=== PATIENT | male | born 1950 | race Caucasian/White ===

== ENCOUNTER 2019-08-14 12:35 | Inpatient (IN) ==
[2019-08-14] MEDS ORDERED: Albuterol 2.5 MG/3 ML NEBULIZER IH PRN (12:48)
[2019-08-14] MEDS ORDERED: CeFAZolin Syr 2,000MG/20 ML 2,000 MG/20 ML SYRINGE IVPB ONE (12:48)
[2019-08-14] MEDS ORDERED: MetroNIDAZOLE 500 MG/100 ML 500 MG/100 ML BAG IVPB ONE (12:49)
[2019-08-14] MEDS ORDERED: Ringers Solution, Lactated 1,000 ML IVC SCH (13:00)
[2019-08-14] MEDS ORDERED: Famotidine 20 MG/2 ML VIAL IVP ONE (13:04)
[2019-08-14] MEDS ORDERED: Acetaminophen IV 1,000 MG/100 ML INFUS..BTL IVPB ONE (13:05)
[2019-08-14] MEDS ORDERED: Pregabalin 75 MG CAPSULE PO ONE (13:05)
[2019-08-14] MEDS ORDERED: *HR* Promethazine 25 MG/ML VIAL IVP PRN (13:22)
[2019-08-14] MEDS ORDERED: *HR* Labetalol 20 MG/4 ML SYRINGE IVP PRN (13:22)
[2019-08-14] MEDS ORDERED: *HR* HYDROmorphone (PF) 1 MG/ML SYRINGE IVP PRN (13:22)
[2019-08-14] MEDS ORDERED: Dexmedetomidine HCl 0 MCG/0 ML MLS IVC ONE (16:28)
[2019-08-14] MEDS ORDERED: Ketamine *HR* 500 MG/10 ML MDV ONE (16:28)
[2019-08-14] MEDS ORDERED: *HR* Propofol 200 MG/20 ML VIAL IVP ONE ×2 (16:30→21:02)
[2019-08-14] MEDS ORDERED: *HR* Magnesium Sulfate 1 GM/2 ML VIAL ONE (16:35)
[2019-08-14] MEDS ORDERED: Lidocaine -MPF 2% 2 ML VIAL ONE (16:44)
[2019-08-14] MEDS ORDERED: *HR* Succinylcholine 200 MG/10 ML VIAL IVP ONE (16:44)
[2019-08-14] MEDS ORDERED: *HR* Rocuronium Bromide 50 MG/5 ML VIAL ONE ×2 (16:44→20:42)
[2019-08-14] MEDS ORDERED: *HR* Midazolam HCl 2 MG/2 ML VIAL ONE (16:56)
[2019-08-14] MEDS ORDERED: Lidocaine -MPF 4% 5 ML AMPUL ONE (17:12)
[2019-08-14] MEDS ORDERED: *HR* FentaNYL (PF) 100 MCG/2 ML VIAL ONE ×2 (17:24→18:22)
[2019-08-14] MEDS ORDERED: Dexamethasone 4 MG/ML VIAL ONE (18:06)
[2019-08-14] MEDS ORDERED: Ondansetron 4 MG/2 ML VIAL ONE (18:06)
[2019-08-14] MEDS ORDERED: *HR* HYDROMORPHONE 2 MG/ML VIAL ONE (19:02)
[2019-08-14] MEDS ORDERED: Ketorolac 30 MG/ML VIAL ONE (20:52)
[2019-08-14] MEDS ORDERED: Naloxone 0.4 MG/ML INJ IVP PRN (21:39)
[2019-08-14] MEDS: Budesonide/Formoterol 160/4.5 1 PUFF INH IH SCH (22:59)
[2019-08-15] MEDS: *HR* HYDROcodone/Acet 5/325 mg TABLET PO PRN ×2 (02:46→10:35)
[2019-08-15] MEDS: Ringers Solution, Lactated 1,000 ML IVC SCH ×3 (02:57→14:31)
[2019-08-15] MEDS: *HR* Enoxaparin 40 MG/0.4 ML SYRINGE SQ SCH (05:36)
[2019-08-15] MEDS: Budesonide/Formoterol 160/4.5 1 PUFF INH IH SCH ×2 (07:56→20:15)
[2019-08-15] MEDS: Venlafaxine XR (24 HR) 75 MG CAP.ER.24H PO SCH (10:11)
[2019-08-15] MEDS: Topiramate 100 MG TABLET PO SCH ×2 (10:11→22:18)
[2019-08-15] MEDS: Lithium Oral Soln 300 MG/5 ML (8 mEq/5mL) UDC PO SCH (10:11)
[2019-08-15] MEDS: Gabapentin 300 MG CAPSULE PO SCH ×4 (10:11→22:18)
[2019-08-15] MEDS ORDERED: Melatonin 3 MG TABLET PO SCH (21:00)
[2019-08-15] MEDS: Ondansetron 4 MG/2 ML VIAL IVP PRN (22:46)
[2019-08-16] MEDS ORDERED: *HR* Promethazine 25 MG/ML VIAL IVP PRN (03:28)
[2019-08-16] MEDS: Ringers Solution, Lactated 1,000 ML IVC SCH (03:50)
[2019-08-16] MEDS ORDERED: D5% in 0.45% NACL w KCl 20 MEQ/1,000 ML MLS IVC SCH (05:45)
[2019-08-16] MEDS: Ondansetron 4 MG/2 ML VIAL IVP PRN (06:02)
[2019-08-16 06:26] LABS: Basophils % 0.1 %; Hematocrit 38.6 % (37.5-50.1); Hemoglobin 13.1 g/dL (12.9-16.9); Immature Granulocytes % 0.3 % (0-4); Lymphocytes # 1.6 K/mcL (0.6-4.6); Lymphocytes % 9.3 %; Mean Corpuscular HGB Conc 33.9 g/dL (31.6-35.5); Mean Corpuscular Hemoglobin 31.3 pg (28.0-33.3); Mean Corpuscular Volume 92.3 fL (83.0-100.0); Mean Platelet Volume 10.5 fL (9.4-12.4); Monocytes # 1.3 K/mcL (0.0-1.3); Monocytes % 7.1 %; Neutrophils # 14.5 K/mcL (1.6-8.9); Platelet Count 238 K/mcL (140-400); Red Blood Count 4.18 M/mcL (4.19-5.50); Red Cell Distribution Width 15.6 % (11.5-14.5); Segmented Neutrophils % 83.2 %; White Blood Count 17.5 K/mcL (4.3-11.1)
[2019-08-16] MEDS: *HR* Enoxaparin 40 MG/0.4 ML SYRINGE SQ SCH (07:00)
[2019-08-16 07:03] LABS: BUN/Creatinine Ratio 22 (6-26); Blood Urea Nitrogen 16 mg/dL (8-23); Calcium 10.6 mg/dL (8.6-10.3); Carbon Dioxide 20 mEq/L (23-29); Chloride 106 mEq/L (98-107); Glucose 125 mg/dL (70-105); Osmolality,Calculated 289 (280-300); Phosphorous 2.7 mg/dL (2.7-4.5); Potassium 3.5 mEq/L (3.5-5.1); Sodium 138 mEq/L (136-145); eGFR For African Americans > 60 (> 60); eGFR For Non-African Americans > 60 (> 60)
[2019-08-16] MEDS: Budesonide/Formoterol 160/4.5 1 PUFF INH IH SCH (07:44)
[2019-08-16] MEDS ORDERED: Ondansetron 4 MG/2 ML VIAL IVP ONE (09:44)
[2019-08-16] MEDS ORDERED: Acetaminophen IV 1,000 MG/100 ML INFUS..BTL IVPB ONE (09:44)
[2019-08-16] MEDS: Topiramate 100 MG TABLET PO SCH (10:44)
[2019-08-16] MEDS: Gabapentin 300 MG CAPSULE PO SCH (10:44)
[2019-08-16] MEDS: Lithium Oral Soln 300 MG/5 ML (8 mEq/5mL) UDC PO SCH (10:44)
[2019-08-16] MEDS: Venlafaxine XR (24 HR) 75 MG CAP.ER.24H PO SCH (10:44)
[2019-08-16] MEDS ORDERED: Lidocaine Jelly 11 ml Syringe MM STA (12:03)
[2019-08-16] MEDS: Piperacillin/Tazobactam 3.375 GM in 0.9 % Sodium Chloride Mini Bag 100 ML IVPB SCH ×2 (13:55→22:10)
[2019-08-16] MEDS ORDERED: Chloraseptic Spray 177 ML BOTTLE MM PRN (14:32)
[2019-08-16] MEDS ORDERED: Promethazine 12.5 MG in 0.9 % Sodium Chloride 50 ML IVPB PRN (14:33)
[2019-08-16] MEDS: Ipratropium/Albuterol Neb 3 ML IH SCH ×4 (15:36→19:46)
[2019-08-16] MEDS ORDERED: Furosemide 40 MG/4 ML VIAL IVP SCH (16:23)
[2019-08-16] MEDS: Acetaminophen IV 1,000 MG/100 ML INFUS..BTL IVPB SCH ×2 (16:38→21:43)
[2019-08-16] MEDS: Furosemide 40 MG/4 ML VIAL IVP SCH (17:04)
[2019-08-16] MEDS ORDERED: Perflutren Lipid Microsphere 1.3 ML in 0.9 % Sodium Chloride 8.7 ML IVP ONE (19:44)
[2019-08-16] MEDS ORDERED: Perflutren Lipid Microsphere 2 ML VIAL ONE (21:18)
[2019-08-17] MEDS: Ipratropium/Albuterol Neb 3 ML IH SCH ×7 (00:13→23:26)
[2019-08-17] MEDS: Acetaminophen IV 1,000 MG/100 ML INFUS..BTL IVPB SCH ×5 (00:30→23:37)
[2019-08-17] MEDS: D5% in 0.45% NACL w KCl 20 MEQ/1,000 ML MLS IVC SCH ×3 (05:25→15:22)
[2019-08-17] MEDS: Piperacillin/Tazobactam 3.375 GM in 0.9 % Sodium Chloride Mini Bag 100 ML IVPB SCH ×3 (05:26→21:30)
[2019-08-17] MEDS: *HR* Enoxaparin 40 MG/0.4 ML SYRINGE SQ SCH (05:28)
[2019-08-17 06:43] LABS: Basophils % 0.2 %; Eosinophils % 0.1 %; Hematocrit 37.2 % (37.5-50.1); Hemoglobin 12.8 g/dL (12.9-16.9); Immature Granulocytes % 0.2 % (0-4); Lymphocytes # 1.4 K/mcL (0.6-4.6); Mean Corpuscular HGB Conc 34.4 g/dL (31.6-35.5); Mean Corpuscular Hemoglobin 31.3 pg (28.0-33.3); Mean Platelet Volume 10.7 fL (9.4-12.4); Monocytes # 0.9 K/mcL (0.0-1.3); Monocytes % 9.5 %; Neutrophils # 6.9 K/mcL (1.6-8.9); Platelet Count 201 K/mcL (140-400); Red Blood Count 4.09 M/mcL (4.19-5.50); Red Cell Distribution Width 15.3 % (11.5-14.5); White Blood Count 9.2 K/mcL (4.3-11.1)
[2019-08-17 07:07] LABS: BUN/Creatinine Ratio 23 (6-26); Blood Urea Nitrogen 18 mg/dL (8-23); Calcium 10.4 mg/dL (8.6-10.3); Carbon Dioxide 24 mEq/L (23-29); Chloride 105 mEq/L (98-107); Glucose 136 mg/dL (70-105); Magnesium 1.9 mg/dL (1.6-2.6); Osmolality,Calculated 292 (280-300); Phosphorous 2.5 mg/dL (2.7-4.5); Potassium 2.9 mEq/L (3.5-5.1); Sodium 139 mEq/L (136-145); eGFR For African Americans > 60 (> 60); eGFR For Non-African Americans > 60 (> 60)
[2019-08-17] MEDS: Furosemide 40 MG/4 ML VIAL IVP SCH (08:19)
[2019-08-17] MEDS: Venlafaxine XR (24 HR) 75 MG CAP.ER.24H PO SCH (08:20)
[2019-08-17] MEDS: Lithium Oral Soln 300 MG/5 ML (8 mEq/5mL) UDC PO SCH (08:20)
[2019-08-17] MEDS: Pantoprazole 40 MG VIAL IVP SCH (08:20)
[2019-08-17] MEDS ORDERED: Potassium Chloride 40 MEQ, Lidocaine 1% 2 ML in D5% in Water 500 ML IVPB ONE (09:21)
[2019-08-17] MEDS ORDERED: Lidocaine -MPF 1% 5 ML AMPUL INFILT ONE (09:23)
[2019-08-17] MEDS ORDERED: D10% in Water 500 ML IVC PRN (09:41)
[2019-08-17 09:46] LABS: Bilirubin,Urine Negative (Negative); Blood,Urine Negative (Negative); Clarity,Urine Clear (Clear); Color,Urine Yellow (Yellow); Glucose,Urine (UA) Normal (Normal); Ketones,Urine Negative (Negative); Leukocyte Esterase,Urine Negative (Negative); Nitrite,Urine Negative (Negative); PH,Urine 6.5 pH Units (5.0-8.0); Protein,Urine Trace mg/dL (Neg-Trace); Specific Gravity,Urine 1.025 (1.010-1.025); Urobilinogen,Urine Normal (Normal)
[2019-08-17 10:03] LABS: INR 1.4; Prothrombin Time 15.7 Seconds (9.4-12.1)
[2019-08-17] MEDS: Saliva Stimulant 100ml BOTTLE PO PRN (11:49)
[2019-08-17] MEDS ORDERED: Clinimix E 5%-15% SOLUTION 2,000 ML with MVI, adult with vitamin K 10 ML IVC SCH (17:00)
[2019-08-17 18:30] LABS: BUN/Creatinine Ratio 22 (6-26); Blood Urea Nitrogen 19 mg/dL (8-23); Calcium 10.3 mg/dL (8.6-10.3); Carbon Dioxide 27 mEq/L (23-29); Chloride 103 mEq/L (98-107); Glucose 126 mg/dL (70-105); Osmolality,Calculated 290 (280-300); Sodium 138 mEq/L (136-145); eGFR For African Americans > 60 (> 60); eGFR For Non-African Americans > 60 (> 60)
[2019-08-17] MEDS ORDERED: *HR* HYDROmorphone (PF) 1 MG/ML SYRINGE IVP ONE (21:05)
[2019-08-18] MEDS: Piperacillin/Tazobactam 3.375 GM in 0.9 % Sodium Chloride Mini Bag 100 ML IVPB SCH ×3 (04:02→21:16)
[2019-08-18 04:07] LABS: Basophils % 0.4 %; Eosinophils # 0.1 K/mcL (0.0-0.6); Eosinophils % 1.6 %; Hematocrit 38.7 % (37.5-50.1); Hemoglobin 12.9 g/dL (12.9-16.9); Immature Granulocytes % 0.3 % (0-4); Lymphocytes # 1.5 K/mcL (0.6-4.6); Lymphocytes % 19.4 %; Mean Corpuscular HGB Conc 33.3 g/dL (31.6-35.5); Mean Platelet Volume 10.4 fL (9.4-12.4); Monocytes # 0.9 K/mcL (0.0-1.3); Monocytes % 11.9 %; Neutrophils # 5.3 K/mcL (1.6-8.9); Platelet Count 215 K/mcL (140-400); Red Blood Count 4.16 M/mcL (4.19-5.50); Red Cell Distribution Width 15.3 % (11.5-14.5); Segmented Neutrophils % 66.4 %; White Blood Count 7.9 K/mcL (4.3-11.1)
[2019-08-18] MEDS: Ipratropium/Albuterol Neb 3 ML IH SCH ×5 (04:14→20:48)
[2019-08-18 04:28] LABS: BUN/Creatinine Ratio 26 (6-26); Blood Urea Nitrogen 20 mg/dL (8-23); Calcium 10.5 mg/dL (8.6-10.3); Carbon Dioxide 28 mEq/L (23-29); Chloride 103 mEq/L (98-107); Glucose 125 mg/dL (70-105); Magnesium 1.9 mg/dL (1.6-2.6); Osmolality,Calculated 292 (280-300); Phosphorous 2.6 mg/dL (2.7-4.5); Potassium 2.9 mEq/L (3.5-5.1); Sodium 139 mEq/L (136-145); eGFR For African Americans > 60 (> 60); eGFR For Non-African Americans > 60 (> 60)
[2019-08-18] MEDS: *HR* Enoxaparin 40 MG/0.4 ML SYRINGE SQ SCH (05:32)
[2019-08-18] MEDS: Acetaminophen IV 1,000 MG/100 ML INFUS..BTL IVPB SCH ×4 (05:32→23:39)
[2019-08-18] MEDS ORDERED: Potassium Phosphate 44 MEQ in 0.9 % Sodium Chloride 250 ML IVPB ONE (08:37)
[2019-08-18] MEDS ORDERED: Potassium Chloride 40 MEQ, Lidocaine 1% 2 ML in 0.9 % Sodium Chloride 500 ML IVPB ONE (09:58)
[2019-08-18] MEDS: Venlafaxine XR (24 HR) 75 MG CAP.ER.24H PO SCH (10:31)
[2019-08-18] MEDS: Lithium Oral Soln 300 MG/5 ML (8 mEq/5mL) UDC PO SCH (10:31)
[2019-08-18] MEDS: Pantoprazole 40 MG VIAL IVP SCH (10:39)
[2019-08-18] MEDS: Furosemide 20 MG/2 ML VIAL IVP SCH (14:06)
[2019-08-18] MEDS ORDERED: Clinimix E 5%-15% SOLUTION 2,000 ML with MVI, adult with vitamin K 10 ML IVC SCH (17:00)
[2019-08-18] MEDS: Metoclopramide 10 MG/2 ML VIAL IVP SCH ×2 (18:23→23:37)
[2019-08-18] MEDS: Simethicone 80 MG TAB.CHEW PO PRN (21:04)
[2019-08-19] MEDS: Ipratropium/Albuterol Neb 3 ML IH SCH ×5 (00:22→10:34)
[2019-08-19] MEDS: *HR* Enoxaparin 40 MG/0.4 ML SYRINGE SQ SCH (05:23)
[2019-08-19] MEDS: Piperacillin/Tazobactam 3.375 GM in 0.9 % Sodium Chloride Mini Bag 100 ML IVPB SCH ×3 (05:26→20:17)
[2019-08-19] MEDS: Metoclopramide 10 MG/2 ML VIAL IVP SCH ×3 (05:29→18:35)
[2019-08-19] MEDS: Acetaminophen IV 1,000 MG/100 ML INFUS..BTL IVPB SCH ×3 (05:36→18:34)
[2019-08-19 06:12] LABS: Basophils % 0.3 %; Eosinophils # 0.3 K/mcL (0.0-0.6); Eosinophils % 2.9 %; Hematocrit 39.4 % (37.5-50.1); Hemoglobin 12.5 g/dL (12.9-16.9); Immature Granulocytes % 0.3 % (0-4); Lymphocytes # 1.6 K/mcL (0.6-4.6); Mean Corpuscular HGB Conc 31.7 g/dL (31.6-35.5); Mean Corpuscular Hemoglobin 30.5 pg (28.0-33.3); Mean Corpuscular Volume 96.1 fL (83.0-100.0); Mean Platelet Volume 11.3 fL (9.4-12.4); Monocytes # 1.1 K/mcL (0.0-1.3); Monocytes % 10.9 %; Platelet Count 244 K/mcL (140-400); Red Cell Distribution Width 15.1 % (11.5-14.5); Segmented Neutrophils % 69.6 %
[2019-08-19 06:30] LABS: BUN/Creatinine Ratio 33 (6-26); Blood Urea Nitrogen 25 mg/dL (8-23); Calcium 10.6 mg/dL (8.6-10.3); Carbon Dioxide 27 mEq/L (23-29); Chloride 103 mEq/L (98-107); Glucose 134 mg/dL (70-105); Magnesium 1.9 mg/dL (1.6-2.6); Osmolality,Calculated 296 (280-300); Phosphorous 2.5 mg/dL (2.7-4.5); Potassium 2.9 mEq/L (3.5-5.1); Sodium 140 mEq/L (136-145); eGFR For African Americans > 60 (> 60); eGFR For Non-African Americans > 60 (> 60)
[2019-08-19] MEDS ORDERED: Potassium Chloride 40 MEQ, Lidocaine 1% 2 ML in 0.9 % Sodium Chloride 500 ML IVPB ONE ×2 (06:37→06:39)
[2019-08-19] MEDS: Furosemide 20 MG/2 ML VIAL IVP SCH (09:28)
[2019-08-19] MEDS: Pantoprazole 40 MG VIAL IVP SCH (09:28)
[2019-08-19] MEDS: Venlafaxine XR (24 HR) 75 MG CAP.ER.24H PO SCH (09:28)
[2019-08-19] MEDS: Lithium Oral Soln 300 MG/5 ML (8 mEq/5mL) UDC PO SCH (09:28)
[2019-08-19] MEDS ORDERED: Ipratropium/Albuterol Neb 3 ML IH PRN (11:59)
[2019-08-19] MEDS ORDERED: Clinimix E 5%-15% SOLUTION 2,000 ML with MVI, adult with vitamin K 10 ML IVC SCH (17:00)
[2019-08-19] MEDS: *HR* LORazepam 2 MG/ML VIAL IVP PRN (20:15)
[2019-08-20] MEDS: Metoclopramide 10 MG/2 ML VIAL IVP SCH ×4 (00:21→17:42)
[2019-08-20] MEDS: Acetaminophen IV 1,000 MG/100 ML INFUS..BTL IVPB SCH ×4 (00:21→17:43)
[2019-08-20] MEDS: Simethicone 80 MG TAB.CHEW PO PRN (03:54)
[2019-08-20 04:12] LABS: Basophils % 0.3 %; Eosinophils # 0.3 K/mcL (0.0-0.6); Hematocrit 39.3 % (37.5-50.1); Hemoglobin 12.9 g/dL (12.9-16.9); Immature Granulocytes % 0.4 % (0-4); Lymphocytes # 1.6 K/mcL (0.6-4.6); Lymphocytes % 15.9 %; Mean Corpuscular HGB Conc 32.8 g/dL (31.6-35.5); Mean Corpuscular Hemoglobin 30.5 pg (28.0-33.3); Mean Corpuscular Volume 92.9 fL (83.0-100.0); Monocytes # 1.2 K/mcL (0.0-1.3); Monocytes % 11.9 %; Platelet Count 240 K/mcL (140-400); Red Blood Count 4.23 M/mcL (4.19-5.50); Red Cell Distribution Width 15.1 % (11.5-14.5); Segmented Neutrophils % 68.5 %; White Blood Count 10.2 K/mcL (4.3-11.1)
[2019-08-20 04:32] LABS: BUN/Creatinine Ratio 38 (6-26); Blood Urea Nitrogen 32 mg/dL (8-23); Carbon Dioxide 27 mEq/L (23-29); Chloride 102 mEq/L (98-107); Glucose 124 mg/dL (70-105); Magnesium 1.8 mg/dL (1.6-2.6); Osmolality,Calculated 296 (280-300); Phosphorous 2.6 mg/dL (2.7-4.5); Potassium 3.1 mEq/L (3.5-5.1); Sodium 139 mEq/L (136-145); eGFR For African Americans > 60 (> 60); eGFR For Non-African Americans > 60 (> 60)
[2019-08-20] MEDS: Piperacillin/Tazobactam 3.375 GM in 0.9 % Sodium Chloride Mini Bag 100 ML IVPB SCH ×3 (05:06→20:14)
[2019-08-20] MEDS: *HR* Enoxaparin 40 MG/0.4 ML SYRINGE SQ SCH (05:07)
[2019-08-20] MEDS ORDERED: *HR* Dextrose 50 % in Water (Syg) 50 ML SYRINGE IVP PRN (08:55)
[2019-08-20] MEDS ORDERED: Dextrose Gel 15 GM/37.5 ML TUBE PO PRN ×2 (08:55)
[2019-08-20] MEDS ORDERED: D5% in Water 1,000 ML IVC PRN (08:55)
[2019-08-20] MEDS: Furosemide 20 MG/2 ML VIAL IVP SCH (08:58)
[2019-08-20] MEDS: Pantoprazole 40 MG VIAL IVP SCH (08:59)
[2019-08-20] MEDS: Venlafaxine XR (24 HR) 75 MG CAP.ER.24H PO SCH (09:14)
[2019-08-20] MEDS: Lithium Oral Soln 300 MG/5 ML (8 mEq/5mL) UDC PO SCH (09:14)
[2019-08-20] MEDS ORDERED: Potassium Phosphate 44 MEQ in 0.9 % Sodium Chloride 250 ML IVPB ONE (11:27)
[2019-08-20] MEDS: Insulin LISPRO 300 UNITS/3 ML VIAL SQ SCH ×3 (11:28→19:49)
[2019-08-20 11:39] LABS: Estimated Average Glucose 117 mg/dl
[2019-08-20] MEDS ORDERED: Insulin LISPRO 300 UNITS/3 ML VIAL SQ SCH (12:00)
[2019-08-20] MEDS ORDERED: Clinimix E 5%-15% SOLUTION 2,000 ML with MVI, adult with vitamin K 10 ML IVC SCH (17:00)
[2019-08-20] MEDS: *HR* LORazepam 2 MG/ML VIAL IVP PRN (20:14)
[2019-08-21] MEDS: Insulin LISPRO 300 UNITS/3 ML VIAL SQ SCH ×6 (00:14→19:57)
[2019-08-21] MEDS: Acetaminophen IV 1,000 MG/100 ML INFUS..BTL IVPB SCH ×4 (00:15→17:32)
[2019-08-21 04:09] LABS: BUN/Creatinine Ratio 49 (6-26); Blood Urea Nitrogen 37 mg/dL (8-23); Calcium 10.7 mg/dL (8.6-10.3); Carbon Dioxide 25 mEq/L (23-29); Chloride 103 mEq/L (98-107); Glucose 119 mg/dL (70-105); Magnesium 2.2 mg/dL (1.6-2.6); Osmolality,Calculated 298 (280-300); Phosphorous 2.8 mg/dL (2.7-4.5); Potassium 2.8 mEq/L (3.5-5.1); Sodium 139 mEq/L (136-145); eGFR For African Americans > 60 (> 60); eGFR For Non-African Americans > 60 (> 60)
[2019-08-21] MEDS: Piperacillin/Tazobactam 3.375 GM in 0.9 % Sodium Chloride Mini Bag 100 ML IVPB SCH ×3 (05:00→20:00)
[2019-08-21] MEDS: Ondansetron 4 MG/2 ML VIAL IVP PRN (06:20)
[2019-08-21] MEDS: *HR* Enoxaparin 40 MG/0.4 ML SYRINGE SQ SCH (06:21)
[2019-08-21] MEDS: Furosemide 20 MG/2 ML VIAL IVP SCH (08:55)
[2019-08-21] MEDS: Pantoprazole 40 MG VIAL IVP SCH (08:55)
[2019-08-21] MEDS: Venlafaxine XR (24 HR) 75 MG CAP.ER.24H PO SCH (09:04)
[2019-08-21] MEDS: Lithium Oral Soln 300 MG/5 ML (8 mEq/5mL) UDC PO SCH (09:05)
[2019-08-21] MEDS ORDERED: Clinimix E 5%-15% SOLUTION 2,000 ML with MVI, adult with vitamin K 10 ML IVC SCH (17:00)
[2019-08-22] MEDS: Insulin LISPRO 300 UNITS/3 ML VIAL SQ SCH ×7 (00:09→23:47)
[2019-08-22] MEDS: Acetaminophen IV 1,000 MG/100 ML INFUS..BTL IVPB SCH ×5 (00:21→23:07)
[2019-08-22] MEDS: Piperacillin/Tazobactam 3.375 GM in 0.9 % Sodium Chloride Mini Bag 100 ML IVPB SCH (05:16)
[2019-08-22] MEDS: *HR* Enoxaparin 40 MG/0.4 ML SYRINGE SQ SCH (05:17)
[2019-08-22 05:23] LABS: BUN/Creatinine Ratio 56 (6-26); Blood Urea Nitrogen 40 mg/dL (8-23); Carbon Dioxide 30 mEq/L (23-29); Chloride 100 mEq/L (98-107); Glucose 117 mg/dL (70-105); Magnesium 2.2 mg/dL (1.6-2.6); Osmolality,Calculated 301 (280-300); Phosphorous 2.9 mg/dL (2.7-4.5); Potassium 2.9 mEq/L (3.5-5.1); Sodium 140 mEq/L (136-145); eGFR For African Americans > 60 (> 60); eGFR For Non-African Americans > 60 (> 60)
[2019-08-22] MEDS: Lithium Oral Soln 300 MG/5 ML (8 mEq/5mL) UDC PO SCH (09:48)
[2019-08-22] MEDS: Furosemide 20 MG/2 ML VIAL IVP SCH (09:48)
[2019-08-22] MEDS: Pantoprazole 40 MG VIAL IVP SCH (09:48)
[2019-08-22] MEDS: Venlafaxine XR (24 HR) 75 MG CAP.ER.24H PO SCH (09:49)
[2019-08-22] MEDS ORDERED: D10% in Water 500 ML IVC PRN (10:49)
[2019-08-22] MEDS ORDERED: Clinimix E 5%-15% SOLUTION 2,000 ML, Parenteral Amino Acid 10% 150 ML with MVI, adult ... IVC SCH ×2 (17:00)
[2019-08-22] MEDS: *HR* LORazepam 2 MG/ML VIAL IVP PRN (23:08)
[2019-08-23] MEDS: Insulin LISPRO 300 UNITS/3 ML VIAL SQ SCH ×5 (04:54→20:45)
[2019-08-23] MEDS: Acetaminophen IV 1,000 MG/100 ML INFUS..BTL IVPB SCH ×3 (05:11→18:24)
[2019-08-23] MEDS: *HR* Enoxaparin 40 MG/0.4 ML SYRINGE SQ SCH (05:11)
[2019-08-23 05:36] LABS: BUN/Creatinine Ratio 66 (6-26); Blood Urea Nitrogen 50 mg/dL (8-23); Calcium 10.9 mg/dL (8.6-10.3); Carbon Dioxide 33 mEq/L (23-29); Chloride 98 mEq/L (98-107); Glucose 126 mg/dL (70-105); Magnesium 2.1 mg/dL (1.6-2.6); Osmolality,Calculated 301 (280-300); Phosphorous 3.2 mg/dL (2.7-4.5); Potassium 2.8 mEq/L (3.5-5.1); Sodium 138 mEq/L (136-145); eGFR For African Americans > 60 (> 60); eGFR For Non-African Americans > 60 (> 60)
[2019-08-23] MEDS: Venlafaxine XR (24 HR) 75 MG CAP.ER.24H PO SCH (08:54)
[2019-08-23] MEDS: Pantoprazole 40 MG VIAL IVP SCH (08:54)
[2019-08-23] MEDS: Furosemide 20 MG/2 ML VIAL IVP SCH (08:54)
[2019-08-23] MEDS: Lithium Oral Soln 300 MG/5 ML (8 mEq/5mL) UDC PO SCH (08:55)
[2019-08-23] MEDS ORDERED: Clinimix E 5%-15% SOLUTION 2,000 ML, Parenteral Amino Acid 10% 150 ML with MVI, adult ... IVC SCH ×2 (17:00)
[2019-08-23] MEDS: Ondansetron 4 MG/2 ML VIAL IVP PRN (19:01)
[2019-08-23] MEDS ORDERED: Isovue-370 500 ML BOTTLE IVP ONE (19:41)
[2019-08-23] MEDS ORDERED: *HR* Promethazine 25 MG/ML VIAL IVP ONE (21:00)
[2019-08-24] MEDS: Acetaminophen IV 1,000 MG/100 ML INFUS..BTL IVPB SCH ×4 (00:42→17:45)
[2019-08-24] MEDS: Insulin LISPRO 300 UNITS/3 ML VIAL SQ SCH ×6 (00:48→20:57)
[2019-08-24 04:59] LABS: BUN/Creatinine Ratio 61 (6-26); Blood Urea Nitrogen 59 mg/dL (8-23); Calcium 11.3 mg/dL (8.6-10.3); Carbon Dioxide 31 mEq/L (23-29); Chloride 91 mEq/L (98-107); Glucose 113 mg/dL (70-105); Osmolality,Calculated 293 (280-300); Phosphorous 4.1 mg/dL (2.7-4.5); Potassium 3.3 mEq/L (3.5-5.1); Sodium 133 mEq/L (136-145); eGFR For African Americans > 60 (> 60); eGFR For Non-African Americans > 60 (> 60)
[2019-08-24 07:43] LABS: Hematocrit 42.5 % (37.5-50.1); Hemoglobin 14.7 g/dL (12.9-16.9); Mean Corpuscular HGB Conc 34.6 g/dL (31.6-35.5); Mean Corpuscular Hemoglobin 30.8 pg (28.0-33.3); Mean Corpuscular Volume 89.1 fL (83.0-100.0); Mean Platelet Volume 12.3 fL (9.4-12.4); Platelet Count 308 K/mcL (140-400); Red Blood Count 4.77 M/mcL (4.19-5.50); Red Cell Distribution Width 14.6 % (11.5-14.5); White Blood Count 17.9 K/mcL (4.3-11.1)
[2019-08-24] MEDS: Venlafaxine XR (24 HR) 75 MG CAP.ER.24H PO SCH (07:58)
[2019-08-24] MEDS: Lithium Oral Soln 300 MG/5 ML (8 mEq/5mL) UDC PO SCH (07:58)
[2019-08-24] MEDS: *HR* Enoxaparin 40 MG/0.4 ML SYRINGE SQ SCH (08:10)
[2019-08-24] MEDS: Pantoprazole 40 MG VIAL IVP SCH (08:10)
[2019-08-24] MEDS: Furosemide 20 MG/2 ML VIAL IVP SCH (08:10)
[2019-08-24] MEDS: Ondansetron 4 MG/2 ML VIAL IVP PRN (15:04)
[2019-08-24] MEDS ORDERED: Clinimix E 5%-15% SOLUTION 2,000 ML, Parenteral Amino Acid 10% 150 ML with MVI, adult ... IVC SCH (17:00)
[2019-08-25] MEDS: Insulin LISPRO 300 UNITS/3 ML VIAL SQ SCH ×5 (00:36→16:43)
[2019-08-25] MEDS: Acetaminophen IV 1,000 MG/100 ML INFUS..BTL IVPB SCH ×4 (01:15→17:28)
[2019-08-25 04:15] LABS: BUN/Creatinine Ratio 64 (6-26); Blood Urea Nitrogen 70 mg/dL (8-23); Calcium 11.5 mg/dL (8.6-10.3); Carbon Dioxide 36 mEq/L (23-29); Chloride 88 mEq/L (98-107); Glucose 143 mg/dL (70-105); Magnesium 2.3 mg/dL (1.6-2.6); Osmolality,Calculated 305 (280-300); Phosphorous 4.1 mg/dL (2.7-4.5); Potassium 3.3 mEq/L (3.5-5.1); Sodium 136 mEq/L (136-145); eGFR For African Americans > 60 (> 60); eGFR For Non-African Americans > 60 (> 60)
[2019-08-25 04:18] LABS: Hematocrit 41.2 % (37.5-50.1); Hemoglobin 13.8 g/dL (12.9-16.9); Immature Platelets 9.2 % (1.1-6.1); Mean Corpuscular HGB Conc 33.5 g/dL (31.6-35.5); Mean Corpuscular Hemoglobin 30.9 pg (28.0-33.3); Mean Corpuscular Volume 92.2 fL (83.0-100.0); Mean Platelet Volume 11.8 fL (9.4-12.4); Red Blood Count 4.47 M/mcL (4.19-5.50); Red Cell Distribution Width 14.6 % (11.5-14.5); White Blood Count 16.3 K/mcL (4.3-11.1)
[2019-08-25] MEDS: *HR* Enoxaparin 40 MG/0.4 ML SYRINGE SQ SCH (05:25)
[2019-08-25] MEDS: Pantoprazole 40 MG VIAL IVP SCH (09:10)
[2019-08-25] MEDS: Furosemide 20 MG/2 ML VIAL IVP SCH (09:10)
[2019-08-25] MEDS: Saliva Stimulant 100ml BOTTLE PO PRN (09:11)
[2019-08-25] MEDS ORDERED: Isovue-370 500 ML BOTTLE IVP ONE (10:21)
[2019-08-25] MEDS ORDERED: Clinimix E 5%-15% SOLUTION 2,000 ML, Parenteral Amino Acid 10% 150 ML with MVI, adult ... IVC SCH ×2 (17:00→22:14)
[2019-08-25] MEDS ORDERED: Lidocaine -MPF 2% 2 ML VIAL ONE (17:06)
[2019-08-25] MEDS ORDERED: Lidocaine -MPF 4% 5 ML AMPUL ONE (17:06)
[2019-08-25] MEDS ORDERED: *HR* Succinylcholine 200 MG/10 ML VIAL IVP ONE (17:06)
[2019-08-25] MEDS ORDERED: *HR* Rocuronium Bromide 50 MG/5 ML VIAL ONE ×2 (17:06→20:29)
[2019-08-25] MEDS ORDERED: *HR* Midazolam HCl 2 MG/2 ML VIAL ONE (17:07)
[2019-08-25] MEDS ORDERED: *HR* FentaNYL (PF) 100 MCG/2 ML VIAL ONE (17:07)
[2019-08-25] MEDS ORDERED: *HR* Propofol 200 MG/20 ML VIAL IVP ONE (17:07)
[2019-08-25] MEDS ORDERED: ceFAZolin 2,000 MG in Water for inj. (sterile) 20 ML IVP ONE (17:54)
[2019-08-25] MEDS ORDERED: Acetaminophen IV 1,000 MG/100 ML INFUS..BTL ONE (18:02)
[2019-08-25] MEDS ORDERED: Famotidine 20 MG/2 ML VIAL ONE (18:02)
[2019-08-25] MEDS ORDERED: *HR* Magnesium Sulfate 1 GM/2 ML VIAL ONE (18:42)
[2019-08-25] MEDS ORDERED: *HR* HYDROMORPHONE 2 MG/ML VIAL ONE (18:54)
[2019-08-25] MEDS ORDERED: *HR* PHENYLEPHRINE 1,000 MCG/10 ML SYRINGE IVP ONE (19:01)
[2019-08-25] MEDS ORDERED: *HR* HYDROmorphone (PF) 1 MG/ML SYRINGE IVP PRN (19:10)
[2019-08-25] MEDS ORDERED: Neostigmine Methylsulfate 3 MG/3 ML SYRINGE ONE (20:48)
[2019-08-25] MEDS ORDERED: Ondansetron 4 MG/2 ML VIAL ONE (20:48)
[2019-08-25] MEDS ORDERED: Dextrose Gel 15 GM/37.5 ML TUBE PO PRN ×2 (22:14)
[2019-08-25] MEDS ORDERED: D5% in Water 1,000 ML IVC PRN (22:14)
[2019-08-25] MEDS ORDERED: D10% in Water 500 ML IVC PRN (22:14)
[2019-08-25] MEDS ORDERED: *HR* Dextrose 50 % in Water (Syg) 50 ML SYRINGE IVP PRN (22:14)
[2019-08-25] MEDS ORDERED: Simethicone 80 MG TAB.CHEW PO PRN (22:14)
[2019-08-25] MEDS ORDERED: Naloxone 0.4 MG/ML INJ IVP PRN (22:14)
[2019-08-25] MEDS ORDERED: Chloraseptic Spray 177 ML BOTTLE MM PRN (22:14)
[2019-08-25] MEDS ORDERED: Saliva Stimulant 100ml BOTTLE PO PRN (22:14)
[2019-08-25] MEDS: *HR* HYDROmorphone 20 MG/20 ML PCA IVC PRN (23:30)
[2019-08-25] MEDS ORDERED: Ringers Solution, Lactated 1,000 ML IVC SCH (23:45)
[2019-08-26] MEDS: Acetaminophen IV 1,000 MG/100 ML INFUS..BTL IVPB SCH ×4 (00:30→16:50)
[2019-08-26] MEDS: Insulin LISPRO 300 UNITS/3 ML VIAL SQ SCH ×6 (00:30→20:36)
[2019-08-26 03:39] LABS: Hematocrit 44.8 % (37.5-50.1); Hemoglobin 14.5 g/dL (12.9-16.9); Mean Corpuscular HGB Conc 32.4 g/dL (31.6-35.5); Mean Corpuscular Hemoglobin 30.6 pg (28.0-33.3); Mean Corpuscular Volume 94.5 fL (83.0-100.0); Mean Platelet Volume 11.7 fL (9.4-12.4); Platelet Count 380 K/mcL (140-400); Red Blood Count 4.74 M/mcL (4.19-5.50); Red Cell Distribution Width 14.6 % (11.5-14.5); White Blood Count 26.2 K/mcL (4.3-11.1)
[2019-08-26 03:55] LABS: Magnesium 2.7 mg/dL (1.6-2.6); Phosphorous 4.9 mg/dL (2.7-4.5); Potassium 3.9 mEq/L (3.5-5.1)
[2019-08-26] MEDS: *HR* Enoxaparin 40 MG/0.4 ML SYRINGE SQ SCH (05:15)
[2019-08-26] MEDS: Pantoprazole 40 MG VIAL IVP SCH (08:55)
[2019-08-26] MEDS: Furosemide 20 MG/2 ML VIAL IVP SCH (08:55)
[2019-08-26] MEDS ORDERED: 0.9 % Sodium Chloride w KCl 20 MEQ/1,000 ML MLS IVC SCH (10:15)
[2019-08-26] MEDS: 0.9 % Sodium Chloride 1,000 ML IVC SCH ×3 (12:25→16:42)
[2019-08-26] MEDS: 0.9 % Sodium Chloride w KCl 20 MEQ/1,000 ML MLS IVC SCH (16:44)
[2019-08-26] MEDS ORDERED: Clinimix E 5%-15% SOLUTION 2,000 ML, Parenteral Amino Acid 10% 150 ML with MVI, adult ... IVC SCH ×2 (17:00)
[2019-08-27] MEDS: Acetaminophen IV 1,000 MG/100 ML INFUS..BTL IVPB SCH ×5 (00:02→23:53)
[2019-08-27] MEDS: 0.9 % Sodium Chloride w KCl 20 MEQ/1,000 ML MLS IVC SCH ×4 (00:45→20:51)
[2019-08-27] MEDS: Insulin LISPRO 300 UNITS/3 ML VIAL SQ SCH ×7 (00:46→23:56)
[2019-08-27 05:14] LABS: BUN/Creatinine Ratio 68 (6-26); Blood Urea Nitrogen 71 mg/dL (8-23); Carbon Dioxide 32 mEq/L (23-29); Chloride 99 mEq/L (98-107); Glucose 113 mg/dL (70-105); Magnesium 2.5 mg/dL (1.6-2.6); Osmolality,Calculated 306 (280-300); Phosphorous 3.6 mg/dL (2.7-4.5); Potassium 3.6 mEq/L (3.5-5.1); Sodium 137 mEq/L (136-145); Triglycerides 119 mg/dL (< 150); eGFR For African Americans > 60 (> 60); eGFR For Non-African Americans > 60 (> 60)
[2019-08-27] MEDS: *HR* Enoxaparin 40 MG/0.4 ML SYRINGE SQ SCH (05:16)
[2019-08-27 08:08] LABS: Basophils % 0.3 %; Hematocrit 36.9 % (37.5-50.1); Lymphocytes % 4.8 %; Mean Platelet Volume 12.1 fL (9.4-12.4); Monocytes % 7.5 %
[2019-08-27 08:09] LABS: Basophils # 0.1 K/mcL (0.0-0.2); Hemoglobin 12.1 g/dL (12.9-16.9); Immature Granulocytes % 1.6 % (0-4); Lymphocytes # 1.7 K/mcL (0.6-4.6); Mean Corpuscular HGB Conc 32.8 g/dL (31.6-35.5); Mean Corpuscular Hemoglobin 31.2 pg (28.0-33.3); Mean Corpuscular Volume 95.1 fL (83.0-100.0); Monocytes # 2.6 K/mcL (0.0-1.3); Neutrophils # 29.6 K/mcL (1.6-8.9); Platelet Count 282 K/mcL (140-400); Red Blood Count 3.88 M/mcL (4.19-5.50); Red Cell Distribution Width 15.1 % (11.5-14.5); Segmented Neutrophils % 85.8 %
[2019-08-27 08:13] LABS: White Blood Count 34.5 K/mcL (4.3-11.1)
[2019-08-27] MEDS: Pantoprazole 40 MG VIAL IVP SCH (08:59)
[2019-08-27] MEDS: Furosemide 20 MG/2 ML VIAL IVP SCH (08:59)
[2019-08-27] MEDS ORDERED: Piperacillin/Tazobactam 3.375 GM in 0.9 % Sodium Chloride Mini Bag 100 ML IVPB SCH (09:14)
[2019-08-27] MEDS ORDERED: Fluconazole 400 MG/200 ML 400 MG/200 ML BAG IVPB ONE (09:26)
[2019-08-27 10:00] LABS: Bilirubin,Urine Negative (Negative); Blood,Urine Negative (Negative); Clarity,Urine Clear (Clear); Color,Urine Yellow (Yellow); Glucose,Urine (UA) Normal (Normal); Ketones,Urine Negative (Negative); Leukocyte Esterase,Urine Negative (Negative); Nitrite,Urine Negative (Negative); Protein,Urine Trace mg/dL (Neg-Trace); Specific Gravity,Urine 1.019 (1.010-1.025); Urobilinogen,Urine Normal (Normal)
[2019-08-27] MEDS ORDERED: *HR* Heparin 5,000 UNIT/ML VIAL IVP PRN (13:34)
[2019-08-27] MEDS ORDERED: *HR* Heparin 5,000 UNIT/ML VIAL IVP ONE (13:34)
[2019-08-27] MEDS: Aspirin 81 MG TAB.CHEW PO SCH (14:44)
[2019-08-27] MEDS: Heparin 25,000 UNIT/250 ML D5W 25,000 UNIT/250 ML IV.SOLN IVC SCH (14:44)
[2019-08-27 14:59] LABS: Hematocrit 34.9 % (37.5-50.1); Hemoglobin 11.1 g/dL (12.9-16.9); Mean Corpuscular HGB Conc 31.8 g/dL (31.6-35.5); Mean Corpuscular Hemoglobin 30.2 pg (28.0-33.3); Mean Corpuscular Volume 95.1 fL (83.0-100.0); Platelet Count 254 K/mcL (140-400); Red Blood Count 3.67 M/mcL (4.19-5.50)
[2019-08-27 15:03] LABS: White Blood Count 29.9 K/mcL (4.3-11.1)
[2019-08-27 15:05] LABS: Heparin anti-factor XA UFH 0.12 IU/mL (0.30-0.70)
[2019-08-27 15:06] LABS: INR 1.2; Prothrombin Time 13.3 Seconds (9.4-12.1)
[2019-08-27] MEDS ORDERED: Clinimix E 5%-15% SOLUTION 2,000 ML, Parenteral Amino Acid 10% 150 ML with MVI, adult ... IVC SCH (17:00)
[2019-08-27] MEDS ORDERED: Perflutren Lipid Microsphere 1.3 ML in 0.9 % Sodium Chloride 8.7 ML IVP ONE (20:14)
[2019-08-27] MEDS ORDERED: Perflutren Lipid Microsphere 2 ML VIAL ONE (20:16)
[2019-08-27] MEDS: Piperacillin/Tazobactam 3.375 GM in 0.9 % Sodium Chloride Mini Bag 100 ML IVPB SCH (20:49)
[2019-08-28] MEDS: Insulin LISPRO 300 UNITS/3 ML VIAL SQ SCH ×5 (03:37→20:22)
[2019-08-28] MEDS: Piperacillin/Tazobactam 3.375 GM in 0.9 % Sodium Chloride Mini Bag 100 ML IVPB SCH ×3 (03:38→20:25)
[2019-08-28 03:44] LABS: Mean Corpuscular Hemoglobin 30.5 pg (28.0-33.3); Red Cell Distribution Width 15.1 % (11.5-14.5)
[2019-08-28 03:45] LABS: Eosinophils % 0.1 %
[2019-08-28 03:46] LABS: Basophils # 0.1 K/mcL (0.0-0.2); Basophils % 0.2 %; Hematocrit 32.2 % (37.5-50.1); Hemoglobin 10.6 g/dL (12.9-16.9); Immature Granulocytes % 2.4 % (0-4); Lymphocytes # 1.6 K/mcL (0.6-4.6); Lymphocytes % 5.8 %; Mean Corpuscular HGB Conc 32.9 g/dL (31.6-35.5); Mean Corpuscular Volume 92.8 fL (83.0-100.0); Mean Platelet Volume 11.8 fL (9.4-12.4); Monocytes # 1.7 K/mcL (0.0-1.3); Monocytes % 6.1 %; Nucleated Red Blood Cells 0.1 /100 WBC (0); Platelet Count 251 K/mcL (140-400); Red Blood Count 3.47 M/mcL (4.19-5.50); Segmented Neutrophils % 85.4 %
[2019-08-28 03:59] LABS: Neutrophils # 23.9 K/mcL (1.6-8.9)
[2019-08-28 04:05] LABS: BUN/Creatinine Ratio 62 (6-26); Blood Urea Nitrogen 56 mg/dL (8-23); Calcium 10.1 mg/dL (8.6-10.3); Carbon Dioxide 32 mEq/L (23-29); Chloride 100 mEq/L (98-107); Glucose 144 mg/dL (70-105); Magnesium 2.3 mg/dL (1.6-2.6); Osmolality,Calculated 306 (280-300); Phosphorous 2.7 mg/dL (2.7-4.5); Potassium 3.4 mEq/L (3.5-5.1); Sodium 139 mEq/L (136-145); eGFR For African Americans > 60 (> 60); eGFR For Non-African Americans > 60 (> 60)
[2019-08-28 04:37] LABS: Platelet Estimate Normal (Normal)
[2019-08-28] MEDS: *HR* Heparin 5,000 UNIT/ML VIAL IVP PRN ×2 (04:41→11:03)
[2019-08-28] MEDS: Acetaminophen IV 1,000 MG/100 ML INFUS..BTL IVPB SCH ×3 (04:43→19:23)
[2019-08-28] MEDS: 0.9 % Sodium Chloride w KCl 20 MEQ/1,000 ML MLS IVC SCH ×2 (05:17→17:02)
[2019-08-28] MEDS: Fluconazole 200 MG/100 ML 200 MG/100 ML BAG IVPB SCH (07:52)
[2019-08-28] MEDS: Furosemide 20 MG/2 ML VIAL IVP SCH (07:52)
[2019-08-28] MEDS: Aspirin 81 MG TAB.CHEW PO SCH (07:52)
[2019-08-28] MEDS: Pantoprazole 40 MG VIAL IVP SCH (07:52)
[2019-08-28] MEDS: Heparin 25,000 UNIT/250 ML D5W 25,000 UNIT/250 ML IV.SOLN IVC SCH (11:32)
[2019-08-28] MEDS ORDERED: Metoclopramide 10 MG/2 ML VIAL IVP SCH (16:00)
[2019-08-28] MEDS: Metoclopramide 20 MG in 0.9 % Sodium Chloride 50 ML IVPB SCH (16:55)
[2019-08-28] MEDS ORDERED: Clinimix E 5%-15% SOLUTION 2,000 ML, Parenteral Amino Acid 10% 150 ML with MVI, adult ... IVC SCH (17:00)
[2019-08-28] MEDS: *HR* Metoprolol 5 MG/5 ML VIAL IVP SCH (17:03)
[2019-08-28] MEDS: *HR* HYDROmorphone 20 MG/20 ML PCA IVC PRN (19:19)
[2019-08-28] MEDS: Budesonide/Formoterol 160/4.5 1 PUFF INH IH SCH (21:44)
[2019-08-29] MEDS: *HR* Metoprolol 5 MG/5 ML VIAL IVP SCH ×5 (00:45→23:59)
[2019-08-29] MEDS: Insulin LISPRO 300 UNITS/3 ML VIAL SQ SCH ×6 (00:46→20:45)
[2019-08-29] MEDS: Metoclopramide 20 MG in 0.9 % Sodium Chloride 50 ML IVPB SCH ×4 (00:46→23:56)
[2019-08-29] MEDS: Acetaminophen IV 1,000 MG/100 ML INFUS..BTL IVPB SCH ×5 (00:47→23:55)
[2019-08-29] MEDS: 0.9 % Sodium Chloride w KCl 20 MEQ/1,000 ML MLS IVC SCH ×2 (01:48→05:16)
[2019-08-29] MEDS: *HR* LORazepam 2 MG/ML VIAL IVP PRN ×2 (02:43→12:33)
[2019-08-29] MEDS ORDERED: Piperacillin/Tazobactam 3.375 GM VIAL ONE (03:58)
[2019-08-29 04:12] LABS: Basophils # 0.1 K/mcL (0.0-0.2); Basophils % 0.3 %; Eosinophils # 0.1 K/mcL (0.0-0.6); Eosinophils % 0.4 %; Immature Granulocytes % 2.9 % (0-4); Lymphocytes # 1.4 K/mcL (0.6-4.6); Lymphocytes % 5.5 %; Mean Corpuscular HGB Conc 32.3 g/dL (31.6-35.5); Mean Corpuscular Hemoglobin 29.9 pg (28.0-33.3); Mean Corpuscular Volume 92.8 fL (83.0-100.0); Mean Platelet Volume 12.3 fL (9.4-12.4); Monocytes # 1.4 K/mcL (0.0-1.3); Monocytes % 5.7 %; Platelet Count 267 K/mcL (140-400); Red Blood Count 3.34 M/mcL (4.19-5.50); Segmented Neutrophils % 85.2 %; White Blood Count 24.7 K/mcL (4.3-11.1)
[2019-08-29] MEDS: Piperacillin/Tazobactam 3.375 GM in 0.9 % Sodium Chloride Mini Bag 100 ML IVPB SCH ×3 (04:13→21:12)
[2019-08-29 04:25] LABS: BUN/Creatinine Ratio 57 (6-26); Blood Urea Nitrogen 41 mg/dL (8-23); Calcium 9.9 mg/dL (8.6-10.3); Carbon Dioxide 30 mEq/L (23-29); Chloride 102 mEq/L (98-107); Glucose 123 mg/dL (70-105); Magnesium 2.1 mg/dL (1.6-2.6); Osmolality,Calculated 299 (280-300); Phosphorous 2.6 mg/dL (2.7-4.5); Potassium 3.2 mEq/L (3.5-5.1); Sodium 139 mEq/L (136-145); eGFR For African Americans > 60 (> 60); eGFR For Non-African Americans > 60 (> 60)
[2019-08-29 04:42] LABS: Platelet Estimate Normal (Normal)
[2019-08-29] MEDS: *HR* Heparin 5,000 UNIT/ML VIAL IVP PRN (05:14)
[2019-08-29] MEDS: Heparin 25,000 UNIT/250 ML D5W 25,000 UNIT/250 ML IV.SOLN IVC SCH (05:15)
[2019-08-29] MEDS: Budesonide/Formoterol 160/4.5 1 PUFF INH IH SCH ×2 (07:24→22:10)
[2019-08-29] MEDS: Fluconazole 200 MG/100 ML 200 MG/100 ML BAG IVPB SCH (09:25)
[2019-08-29] MEDS: Furosemide 20 MG/2 ML VIAL IVP SCH (09:25)
[2019-08-29] MEDS: Pantoprazole 40 MG VIAL IVP SCH (09:28)
[2019-08-29] MEDS ORDERED: Potassium Phosphate 44 MEQ in 0.9 % Sodium Chloride 250 ML IVPB ONE (11:10)
[2019-08-29] MEDS ORDERED: [UNRECOGNIZED DRUG - OTHER] IVC SCH (17:00)
[2019-08-29] MEDS ORDERED: CLINIMIX E IVC SCH (17:00)
[2019-08-29] MEDS ORDERED: PARENTERAL AMINO ACID 10% IVC SCH (17:00)
[2019-08-29] MEDS ORDERED: MVI IVC SCH (17:00)
[2019-08-30] MEDS: Insulin LISPRO 300 UNITS/3 ML VIAL SQ SCH ×6 (00:10→21:52)
[2019-08-30] MEDS: *HR* LORazepam 2 MG/ML VIAL IVP PRN ×2 (01:14→11:18)
[2019-08-30] MEDS: Piperacillin/Tazobactam 3.375 GM in 0.9 % Sodium Chloride Mini Bag 100 ML IVPB SCH ×3 (04:36→21:51)
[2019-08-30] MEDS ORDERED: Haloperidol Lactate 5 MG/ML VIAL IM ONE (04:41)
[2019-08-30] MEDS: Acetaminophen IV 1,000 MG/100 ML INFUS..BTL IVPB SCH ×3 (05:31→17:33)
[2019-08-30] MEDS: *HR* Metoprolol 5 MG/5 ML VIAL IVP SCH ×3 (05:33→17:33)
[2019-08-30 06:05] LABS: Basophils # 0.1 K/mcL (0.0-0.2); Basophils % 0.4 %; Eosinophils # 0.1 K/mcL (0.0-0.6); Eosinophils % 0.6 %; Hematocrit 29.9 % (37.5-50.1); Hemoglobin 9.8 g/dL (12.9-16.9); Immature Granulocytes % 3.8 % (0-4); Lymphocytes # 1.5 K/mcL (0.6-4.6); Lymphocytes % 7.1 %; Mean Corpuscular HGB Conc 32.8 g/dL (31.6-35.5); Mean Corpuscular Hemoglobin 30.6 pg (28.0-33.3); Mean Corpuscular Volume 93.4 fL (83.0-100.0); Mean Platelet Volume 11.9 fL (9.4-12.4); Monocytes # 1.5 K/mcL (0.0-1.3); Monocytes % 7.5 %; Neutrophils # 16.5 K/mcL (1.6-8.9); Platelet Count 287 K/mcL (140-400); Red Cell Distribution Width 15.3 % (11.5-14.5); Segmented Neutrophils % 80.6 %; White Blood Count 20.5 K/mcL (4.3-11.1)
[2019-08-30 06:21] LABS: BUN/Creatinine Ratio 57 (6-26); Blood Urea Nitrogen 38 mg/dL (8-23); Calcium 9.9 mg/dL (8.6-10.3); Carbon Dioxide 29 mEq/L (23-29); Chloride 103 mEq/L (98-107); Glucose 156 mg/dL (70-105); Magnesium 2.2 mg/dL (1.6-2.6); Osmolality,Calculated 306 (280-300); Phosphorous 3.2 mg/dL (2.7-4.5); Sodium 142 mEq/L (136-145); eGFR For African Americans > 60 (> 60); eGFR For Non-African Americans > 60 (> 60)
[2019-08-30] MEDS ORDERED: Potassium Chloride 40 MEQ, Lidocaine 1% 2 ML in D5% in Water 500 ML IVPB ONE (07:50)
[2019-08-30] MEDS: Budesonide/Formoterol 160/4.5 1 PUFF INH IH SCH (07:54)
[2019-08-30] MEDS: Pantoprazole 40 MG VIAL IVP SCH (08:06)
[2019-08-30] MEDS: Furosemide 20 MG/2 ML VIAL IVP SCH (08:06)
[2019-08-30] MEDS: Fluconazole 200 MG/100 ML 200 MG/100 ML BAG IVPB SCH (08:06)
[2019-08-30] MEDS: Haloperidol Lactate 5 MG/ML VIAL IVP PRN ×2 (08:46→12:59)
[2019-08-30] MEDS ORDERED: Isovue-370 500 ML BOTTLE IVP ONE ×2 (09:04)
[2019-08-30] MEDS ORDERED: Potassium Chloride 40 MEQ, Lidocaine 1% 2 ML in 0.9 % Sodium Chloride 500 ML IVPB ONE (09:15)
[2019-08-30] MEDS ORDERED: Isovue-370 500 ML BOTTLE PO ONE (09:51)
[2019-08-30 10:22] LABS: % Iron Saturation 8 % (20-55); Iron 12 mcg/dL (65-175); Transferrin 109 mg/dL (203-362)
[2019-08-30] MEDS: Ondansetron 4 MG/2 ML VIAL IVP PRN (11:18)
[2019-08-30] MEDS: Acetylcysteine 10% 2 ML INHSOL IH SCH ×3 (11:52→20:21)
[2019-08-30] MEDS: Albuterol 2.5 MG/3 ML NEBULIZER IH SCH ×3 (11:52→20:21)
[2019-08-30] MEDS: Iron Sucrose Complex 250 MG in 0.9 % Sodium Chloride 250 ML IVPB SCH (12:45)
[2019-08-30] MEDS ORDERED: Calcium Gluconate 1gm/50mL 1 GM/50 ML BAG IVPB PRN (14:56)
[2019-08-30] MEDS: Haloperidol Lactate 5 MG/ML VIAL IVP SCH ×2 (15:44→21:52)
[2019-08-30 15:58] LABS: Monocytes % 8.8 %
[2019-08-30 16:00] LABS: Basophils # 0.1 K/mcL (0.0-0.2); Basophils % 0.3 %; Eosinophils # 0.1 K/mcL (0.0-0.6); Eosinophils % 0.9 %; Hematocrit 29.6 % (37.5-50.1); Hemoglobin 7.9 g/dL (12.9-16.9); Immature Granulocytes % 2.7 % (0-4); Lymphocytes # 1.5 K/mcL (0.6-4.6); Lymphocytes % 9.8 %; Mean Corpuscular HGB Conc 26.7 g/dL (31.6-35.5); Mean Corpuscular Hemoglobin 30.3 pg (28.0-33.3); Mean Corpuscular Volume 113.4 fL (83.0-100.0); Mean Platelet Volume 11.9 fL (9.4-12.4); Monocytes # 1.4 K/mcL (0.0-1.3); Platelet Count 215 K/mcL (140-400); Red Blood Count 2.61 M/mcL (4.19-5.50); Segmented Neutrophils % 77.5 %; White Blood Count 15.5 K/mcL (4.3-11.1)
[2019-08-30 16:02] LABS: VBG Ionized Calcium 1.28 mmol/L (1.15-1.35)
[2019-08-30 16:09] LABS: Hypochromasia Present (Not Present); Macrocytosis Present (Not Present)
[2019-08-30 16:18] LABS: Magnesium 2.7 mg/dL (1.6-2.6); Phosphorous 13.8 mg/dL (2.7-4.5)
[2019-08-30 16:50] LABS: INR 1.3; Prothrombin Time 15.2 Seconds (9.4-12.1)
[2019-08-30] MEDS ORDERED: MVI IVC SCH ×2 (17:00)
[2019-08-30] MEDS ORDERED: CLINIMIX E IVC SCH ×2 (17:00)
[2019-08-30] MEDS ORDERED: PARENTERAL AMINO ACID 10% IVC SCH ×2 (17:00)
[2019-08-30] MEDS ORDERED: [UNRECOGNIZED DRUG - OTHER] IVC SCH ×2 (17:00)
[2019-08-30] MEDS ORDERED: Lidocaine HCL 4 ML Topical Solution (Laryng-O-Jet Kit Sterile Pak) TP ONE (17:49)
[2019-08-30] MEDS ORDERED: *HR* Propofol 200 MG/20 ML VIAL IVP ONE (17:53)
[2019-08-30] MEDS ORDERED: *HR* FentaNYL (PF) 100 MCG/2 ML VIAL ONE ×2 (17:53→20:11)
[2019-08-30] MEDS ORDERED: Ondansetron 4 MG/2 ML VIAL ONE (17:54)
[2019-08-30] MEDS ORDERED: Lidocaine -MPF 2% 2 ML VIAL ONE (17:54)
[2019-08-30] MEDS ORDERED: Dexamethasone 4 MG/ML VIAL ONE (17:54)
[2019-08-30] MEDS ORDERED: *HR* Midazolam HCl 2 MG/2 ML VIAL ONE ×2 (17:54→20:10)
[2019-08-30] MEDS ORDERED: *HR* Rocuronium Bromide 50 MG/5 ML VIAL ONE ×2 (17:54→18:03)
[2019-08-30] MEDS ORDERED: *HR* HYDROMORPHONE 2 MG/ML VIAL ONE (17:54)
[2019-08-30] MEDS ORDERED: Acetaminophen IV 0 MG/0 ML INFUS..BTL ONE (18:03)
[2019-08-30] MEDS ORDERED: *HR* Vasopressin 20 UNIT/ML VIAL ONE (18:04)
[2019-08-30 22:24] LABS: BUN/Creatinine Ratio 47 (6-26); Blood Urea Nitrogen 33 mg/dL (8-23); Calcium 9.7 mg/dL (8.6-10.3); Carbon Dioxide 29 mEq/L (23-29); Chloride 107 mEq/L (98-107); Glucose 120 mg/dL (70-105); Osmolality,Calculated 304 (280-300); Potassium 3.6 mEq/L (3.5-5.1); Sodium 143 mEq/L (136-145); eGFR For African Americans > 60 (> 60); eGFR For Non-African Americans > 60 (> 60)
[2019-08-31] MEDS: Haloperidol Lactate 5 MG/ML VIAL IVP SCH ×6 (00:17→21:01)
[2019-08-31] MEDS: *HR* Metoprolol 5 MG/5 ML VIAL IVP SCH ×4 (00:17→17:57)
[2019-08-31] MEDS: Acetaminophen IV 1,000 MG/100 ML INFUS..BTL IVPB SCH ×4 (00:17→17:56)
[2019-08-31] MEDS: Insulin LISPRO 300 UNITS/3 ML VIAL SQ SCH ×6 (00:17→21:17)
[2019-08-31] MEDS: Budesonide/Formoterol 160/4.5 1 PUFF INH IH SCH ×3 (00:22→20:30)
[2019-08-31] MEDS: Acetylcysteine 10% 2 ML INHSOL IH SCH ×6 (00:23→20:29)
[2019-08-31] MEDS: Albuterol 2.5 MG/3 ML NEBULIZER IH SCH ×6 (00:23→20:29)
[2019-08-31] MEDS: Piperacillin/Tazobactam 3.375 GM in 0.9 % Sodium Chloride Mini Bag 100 ML IVPB SCH ×3 (03:05→21:01)
[2019-08-31 03:34] LABS: VBG Ionized Calcium 1.34 mmol/L (1.15-1.35)
[2019-08-31 03:52] LABS: BUN/Creatinine Ratio 47 (6-26); Blood Urea Nitrogen 32 mg/dL (8-23); Calcium 9.5 mg/dL (8.6-10.3); Carbon Dioxide 29 mEq/L (23-29); Chloride 108 mEq/L (98-107); Glucose 125 mg/dL (70-105); Magnesium 2.2 mg/dL (1.6-2.6); Osmolality,Calculated 304 (280-300); Phosphorous 2.9 mg/dL (2.7-4.5); Potassium 3.4 mEq/L (3.5-5.1); Sodium 143 mEq/L (136-145); eGFR For African Americans > 60 (> 60); eGFR For Non-African Americans > 60 (> 60)
[2019-08-31] MEDS: Potassium Chloride 40 MEQ/200 ML BAG IVPB PRN (04:56)
[2019-08-31] MEDS: Potassium Phosphate 44 MEQ in 0.9 % Sodium Chloride 250 ML IVPB PRN (05:07)
[2019-08-31] MEDS: Pantoprazole 40 MG VIAL IVP SCH (08:28)
[2019-08-31] MEDS: Furosemide 20 MG/2 ML VIAL IVP SCH (08:28)
[2019-08-31] MEDS: Iron Sucrose Complex 250 MG in 0.9 % Sodium Chloride 250 ML IVPB SCH (08:28)
[2019-08-31] MEDS: Fluconazole 200 MG/100 ML 200 MG/100 ML BAG IVPB SCH (08:50)
[2019-08-31 09:19] LABS: Basophils # 0.1 K/mcL (0.0-0.2); Basophils % 0.5 %; Eosinophils # 0.2 K/mcL (0.0-0.6); Eosinophils % 1.2 %; Hemoglobin 9.3 g/dL (12.9-16.9); Immature Granulocytes % 4.3 % (0-4); Lymphocytes # 1.6 K/mcL (0.6-4.6); Mean Corpuscular HGB Conc 32.1 g/dL (31.6-35.5); Mean Corpuscular Hemoglobin 30.7 pg (28.0-33.3); Mean Platelet Volume 12.1 fL (9.4-12.4); Monocytes # 1.5 K/mcL (0.0-1.3); Monocytes % 7.3 %; Neutrophils # 15.7 K/mcL (1.6-8.9); Nucleated Red Blood Cells 0.2 /100 WBC (0); Platelet Count 250 K/mcL (140-400); Red Blood Count 3.03 M/mcL (4.19-5.50); Red Cell Distribution Width 15.6 % (11.5-14.5); Segmented Neutrophils % 78.7 %; White Blood Count 19.9 K/mcL (4.3-11.1)
[2019-08-31 09:20] LABS: Mean Corpuscular Volume 95.7 fL (83.0-100.0)
[2019-08-31] MEDS: Haloperidol Lactate 5 MG/ML VIAL IVP PRN (14:00)
[2019-08-31 16:36] LABS: BUN/Creatinine Ratio 46 (6-26); Blood Urea Nitrogen 28 mg/dL (8-23); Calcium 9.5 mg/dL (8.6-10.3); Carbon Dioxide 26 mEq/L (23-29); Chloride 110 mEq/L (98-107); Glucose 161 mg/dL (70-105); Osmolality,Calculated 305 (280-300); Potassium 3.9 mEq/L (3.5-5.1); Sodium 143 mEq/L (136-145); eGFR For African Americans > 60 (> 60); eGFR For Non-African Americans > 60 (> 60)
[2019-08-31] MEDS ORDERED: [UNRECOGNIZED DRUG - OTHER] IVC SCH (17:00)
[2019-08-31] MEDS ORDERED: PARENTERAL AMINO ACID 10% IVC SCH (17:00)
[2019-08-31] MEDS ORDERED: CLINIMIX E IVC SCH (17:00)
[2019-08-31] MEDS ORDERED: MVI IVC SCH (17:00)
[2019-09-01] MEDS: Albuterol 2.5 MG/3 ML NEBULIZER IH SCH ×6 (00:40→20:15)
[2019-09-01] MEDS: Acetylcysteine 10% 2 ML INHSOL IH SCH ×6 (00:40→20:16)
[2019-09-01] MEDS: Acetaminophen IV 1,000 MG/100 ML INFUS..BTL IVPB SCH ×4 (00:51→17:19)
[2019-09-01] MEDS: *HR* Metoprolol 5 MG/5 ML VIAL IVP SCH ×4 (00:51→17:12)
[2019-09-01] MEDS: Haloperidol Lactate 5 MG/ML VIAL IVP SCH ×6 (00:51→20:43)
[2019-09-01] MEDS: Insulin LISPRO 300 UNITS/3 ML VIAL SQ SCH ×6 (00:53→20:50)
[2019-09-01] MEDS: Piperacillin/Tazobactam 3.375 GM in 0.9 % Sodium Chloride Mini Bag 100 ML IVPB SCH ×3 (04:30→20:43)
[2019-09-01 04:43] LABS: Basophils # 0.1 K/mcL (0.0-0.2); Basophils % 0.3 %; Eosinophils # 0.2 K/mcL (0.0-0.6); Hematocrit 27.8 % (37.5-50.1); Hemoglobin 8.9 g/dL (12.9-16.9); Immature Granulocytes % 4.8 % (0-4); Lymphocytes # 1.7 K/mcL (0.6-4.6); Lymphocytes % 7.7 %; Mean Corpuscular Hemoglobin 30.3 pg (28.0-33.3); Mean Corpuscular Volume 94.6 fL (83.0-100.0); Mean Platelet Volume 11.8 fL (9.4-12.4); Monocytes # 1.4 K/mcL (0.0-1.3); Monocytes % 6.1 %; Neutrophils # 17.7 K/mcL (1.6-8.9); Nucleated Red Blood Cells 0.4 /100 WBC (0); Platelet Count 264 K/mcL (140-400); Red Blood Count 2.94 M/mcL (4.19-5.50); Red Cell Distribution Width 15.3 % (11.5-14.5); Segmented Neutrophils % 80.1 %; White Blood Count 22.1 K/mcL (4.3-11.1)
[2019-09-01 04:54] LABS: Magnesium 2.2 mg/dL (1.6-2.6); Phosphorous 2.8 mg/dL (2.7-4.5)
[2019-09-01] MEDS: Potassium Phosphate 44 MEQ in 0.9 % Sodium Chloride 250 ML IVPB PRN (06:32)
[2019-09-01 06:38] LABS: BUN/Creatinine Ratio 48 (6-26); Blood Urea Nitrogen 26 mg/dL (8-23); Calcium 9.6 mg/dL (8.6-10.3); Carbon Dioxide 26 mEq/L (23-29); Chloride 107 mEq/L (98-107); Glucose 120 mg/dL (70-105); Osmolality,Calculated 308 (280-300); Potassium 3.7 mEq/L (3.5-5.1); Sodium 146 mEq/L (136-145); eGFR For African Americans > 60 (> 60); eGFR For Non-African Americans > 60 (> 60)
[2019-09-01] MEDS: Potassium Chloride 40 MEQ/200 ML BAG IVPB PRN (06:58)
[2019-09-01] MEDS: Budesonide/Formoterol 160/4.5 1 PUFF INH IH SCH ×2 (07:51→20:16)
[2019-09-01] MEDS: Pantoprazole 40 MG VIAL IVP SCH (08:31)
[2019-09-01] MEDS: Fluconazole 200 MG/100 ML 200 MG/100 ML BAG IVPB SCH (08:32)
[2019-09-01] MEDS: Aspirin 81 MG TAB.CHEW PO SCH (08:33)
[2019-09-01] MEDS: Iron Sucrose Complex 250 MG in 0.9 % Sodium Chloride 250 ML IVPB SCH (09:37)
[2019-09-01] MEDS ORDERED: PARENTERAL AMINO ACID 10% IVC SCH (17:00)
[2019-09-01] MEDS ORDERED: CLINIMIX E IVC SCH (17:00)
[2019-09-01] MEDS ORDERED: [UNRECOGNIZED DRUG - OTHER] IVC SCH (17:00)
[2019-09-01] MEDS ORDERED: MVI IVC SCH (17:00)
[2019-09-02] MEDS: Acetylcysteine 10% 2 ML INHSOL IH SCH ×7 (00:26→23:38)
[2019-09-02] MEDS: Albuterol 2.5 MG/3 ML NEBULIZER IH SCH ×7 (00:26→23:38)
[2019-09-02] MEDS: Haloperidol Lactate 5 MG/ML VIAL IVP SCH ×6 (00:47→20:22)
[2019-09-02] MEDS: Acetaminophen IV 1,000 MG/100 ML INFUS..BTL IVPB SCH ×4 (00:47→17:22)
[2019-09-02] MEDS: *HR* Metoprolol 5 MG/5 ML VIAL IVP SCH ×4 (00:48→17:22)
[2019-09-02] MEDS: Insulin LISPRO 300 UNITS/3 ML VIAL SQ SCH ×6 (01:03→20:22)
[2019-09-02] MEDS: Piperacillin/Tazobactam 3.375 GM in 0.9 % Sodium Chloride Mini Bag 100 ML IVPB SCH ×3 (04:30→20:22)
[2019-09-02 05:27] LABS: VBG Ionized Calcium 1.41 mmol/L (1.15-1.35)
[2019-09-02 05:40] LABS: Basophils # 0.1 K/mcL (0.0-0.2); Basophils % 0.3 %; Eosinophils # 0.3 K/mcL (0.0-0.6); Eosinophils % 1.2 %; Hematocrit 28.5 % (37.5-50.1); Hemoglobin 8.7 g/dL (12.9-16.9); Immature Granulocytes % 4.4 % (0-4); Lymphocytes # 1.9 K/mcL (0.6-4.6); Lymphocytes % 8.3 %; Mean Corpuscular HGB Conc 30.5 g/dL (31.6-35.5); Mean Corpuscular Hemoglobin 29.7 pg (28.0-33.3); Mean Corpuscular Volume 97.3 fL (83.0-100.0); Mean Platelet Volume 12.1 fL (9.4-12.4); Monocytes # 1.3 K/mcL (0.0-1.3); Monocytes % 5.6 %; Neutrophils # 18.7 K/mcL (1.6-8.9); Nucleated Red Blood Cells 0.4 /100 WBC (0); Platelet Count 268 K/mcL (140-400); Red Blood Count 2.93 M/mcL (4.19-5.50); Red Cell Distribution Width 15.8 % (11.5-14.5); Segmented Neutrophils % 80.2 %; White Blood Count 23.4 K/mcL (4.3-11.1)
[2019-09-02 05:49] LABS: BUN/Creatinine Ratio 44 (6-26); Blood Urea Nitrogen 22 mg/dL (8-23); Calcium 9.6 mg/dL (8.6-10.3); Carbon Dioxide 22 mEq/L (23-29); Chloride 114 mEq/L (98-107); Glucose 100 mg/dL (70-105); Magnesium 2.1 mg/dL (1.6-2.6); Osmolality,Calculated 299 (280-300); Phosphorous 2.8 mg/dL (2.7-4.5); Potassium 4.3 mEq/L (3.5-5.1); Sodium 143 mEq/L (136-145); eGFR For African Americans > 60 (> 60); eGFR For Non-African Americans > 60 (> 60)
[2019-09-02] MEDS: Potassium Phosphate 44 MEQ in 0.9 % Sodium Chloride 250 ML IVPB PRN (06:29)
[2019-09-02] MEDS: Aspirin 81 MG TAB.CHEW PO SCH (08:54)
[2019-09-02] MEDS: Fluconazole 200 MG/100 ML 200 MG/100 ML BAG IVPB SCH (08:54)
[2019-09-02] MEDS: Pantoprazole 40 MG VIAL IVP SCH (08:55)
[2019-09-02] MEDS: Iron Sucrose Complex 250 MG in 0.9 % Sodium Chloride 250 ML IVPB SCH (09:07)
[2019-09-02] MEDS: Budesonide/Formoterol 160/4.5 1 PUFF INH IH SCH ×2 (10:37→19:23)
[2019-09-02] MEDS ORDERED: PARENTERAL AMINO ACID 10% IVC SCH (17:00)
[2019-09-02] MEDS ORDERED: MVI IVC SCH (17:00)
[2019-09-02] MEDS ORDERED: [UNRECOGNIZED DRUG - OTHER] IVC SCH (17:00)
[2019-09-02] MEDS ORDERED: CLINIMIX E IVC SCH (17:00)
[2019-09-03] MEDS: Acetaminophen IV 1,000 MG/100 ML INFUS..BTL IVPB SCH ×4 (00:40→17:01)
[2019-09-03] MEDS: Insulin LISPRO 300 UNITS/3 ML VIAL SQ SCH ×6 (00:41→20:02)
[2019-09-03] MEDS: *HR* Metoprolol 5 MG/5 ML VIAL IVP SCH ×4 (00:41→17:00)
[2019-09-03] MEDS: Haloperidol Lactate 5 MG/ML VIAL IVP SCH ×6 (00:41→20:01)
[2019-09-03] MEDS: Albuterol 2.5 MG/3 ML NEBULIZER IH SCH ×6 (03:38→23:30)
[2019-09-03] MEDS: Acetylcysteine 10% 2 ML INHSOL IH SCH ×6 (03:38→23:30)
[2019-09-03] MEDS: Piperacillin/Tazobactam 3.375 GM in 0.9 % Sodium Chloride Mini Bag 100 ML IVPB SCH ×3 (04:33→20:03)
[2019-09-03 05:12] LABS: Basophils # 0.1 K/mcL (0.0-0.2); Basophils % 0.3 %; Eosinophils # 0.3 K/mcL (0.0-0.6); Eosinophils % 1.3 %; Hemoglobin 8.8 g/dL (12.9-16.9); Immature Granulocytes % 4.8 % (0-4); Lymphocytes % 8.2 %; Mean Corpuscular HGB Conc 31.4 g/dL (31.6-35.5); Mean Corpuscular Hemoglobin 30.8 pg (28.0-33.3); Mean Corpuscular Volume 97.9 fL (83.0-100.0); Mean Platelet Volume 11.4 fL (9.4-12.4); Monocytes # 1.2 K/mcL (0.0-1.3); Monocytes % 4.8 %; Neutrophils # 19.2 K/mcL (1.6-8.9); Nucleated Red Blood Cells 0.1 /100 WBC (0); Platelet Count 302 K/mcL (140-400); Red Blood Count 2.86 M/mcL (4.19-5.50); Red Cell Distribution Width 15.9 % (11.5-14.5); Segmented Neutrophils % 80.6 %; White Blood Count 23.9 K/mcL (4.3-11.1)
[2019-09-03 05:30] LABS: BUN/Creatinine Ratio 41 (6-26); Blood Urea Nitrogen 20 mg/dL (8-23); Calcium 9.4 mg/dL (8.6-10.3); Carbon Dioxide 20 mEq/L (23-29); Chloride 115 mEq/L (98-107); Glucose 100 mg/dL (70-105); Magnesium 2.1 mg/dL (1.6-2.6); Osmolality,Calculated 295 (280-300); Phosphorous 2.6 mg/dL (2.7-4.5); Potassium 4.4 mEq/L (3.5-5.1); Sodium 141 mEq/L (136-145); eGFR For African Americans > 60 (> 60); eGFR For Non-African Americans > 60 (> 60)
[2019-09-03 06:25] LABS: VBG Ionized Calcium 1.38 mmol/L (1.15-1.35)
[2019-09-03] MEDS: Budesonide/Formoterol 160/4.5 1 PUFF INH IH SCH ×2 (07:50→19:55)
[2019-09-03] MEDS ORDERED: Isovue-370 500 ML BOTTLE IVP ONE (07:54)
[2019-09-03] MEDS: Ondansetron 4 MG/2 ML VIAL IVP PRN (08:28)
[2019-09-03] MEDS: Pantoprazole 40 MG VIAL IVP SCH (08:29)
[2019-09-03] MEDS: Fluconazole 200 MG/100 ML 200 MG/100 ML BAG IVPB SCH (08:29)
[2019-09-03] MEDS: Aspirin 81 MG TAB.CHEW PO SCH (08:29)
[2019-09-03] MEDS ORDERED: ISOVUE-370 100 ML INFUS..BTL PO ONE (09:27)
[2019-09-03 14:50] LABS: Amylase 62 Units/L (29-103); Lipase 134 Units/L (11-82)
[2019-09-03] MEDS ORDERED: CLINIMIX E IVC SCH (17:00)
[2019-09-03] MEDS ORDERED: MVI IVC SCH (17:00)
[2019-09-03] MEDS ORDERED: [UNRECOGNIZED DRUG - OTHER] IVC SCH (17:00)
[2019-09-03] MEDS ORDERED: PARENTERAL AMINO ACID 10% IVC SCH (17:00)
[2019-09-03] MEDS: *HR* Heparin 5,000 UNIT/ML VIAL SQ SCH (17:01)
[2019-09-03] MEDS: Ipratropium/Albuterol Neb 3 ML IH PRN (19:55)
[2019-09-04] MEDS: *HR* Metoprolol 5 MG/5 ML VIAL IVP SCH ×5 (00:29→23:59)
[2019-09-04] MEDS: Insulin LISPRO 300 UNITS/3 ML VIAL SQ SCH ×6 (00:30→21:10)
[2019-09-04] MEDS: Haloperidol Lactate 5 MG/ML VIAL IVP SCH ×7 (00:30→23:59)
[2019-09-04] MEDS: Acetaminophen IV 1,000 MG/100 ML INFUS..BTL IVPB SCH ×5 (00:31→23:58)
[2019-09-04 03:30] LABS: VBG Ionized Calcium 1.47 mmol/L (1.15-1.35)
[2019-09-04] MEDS: Albuterol 2.5 MG/3 ML NEBULIZER IH SCH ×5 (03:47→20:03)
[2019-09-04] MEDS: Acetylcysteine 10% 2 ML INHSOL IH SCH ×6 (03:51→20:04)
[2019-09-04 03:56] LABS: Alanine Aminotransferase 39 Units/L (7-52); Albumin 2.5 g/dL (3.5-5.7); Albumin/Globulin Ratio 0.7 (1.1-2.2); Alkaline Phosphatase 196 Units/L (34-104); Aspartate Amino Transferase 26 Units/L (13-39); BUN/Creatinine Ratio 41 (6-26); Bilirubin,Total 0.4 mg/dL (0.3-1.0); Blood Urea Nitrogen 21 mg/dL (8-23); Calcium 9.4 mg/dL (8.6-10.3); Carbon Dioxide 21 mEq/L (23-29); Chloride 114 mEq/L (98-107); Globulin 3.4 g/dL (2.4-3.5); Glucose 125 mg/dL (70-105); Magnesium 2.1 mg/dL (1.6-2.6); Osmolality,Calculated 292 (280-300); Sodium 139 mEq/L (136-145); Total Protein 5.9 g/dL (6.4-8.9); Triglycerides 113 mg/dL (< 150); eGFR For African Americans > 60 (> 60); eGFR For Non-African Americans > 60 (> 60)
[2019-09-04] MEDS: Piperacillin/Tazobactam 3.375 GM in 0.9 % Sodium Chloride Mini Bag 100 ML IVPB SCH ×3 (04:09→19:53)
[2019-09-04] MEDS: *HR* Heparin 5,000 UNIT/ML VIAL SQ SCH ×2 (06:05→16:50)
[2019-09-04] MEDS: Ipratropium/Albuterol Neb 3 ML IH PRN (07:36)
[2019-09-04] MEDS: Budesonide/Formoterol 160/4.5 1 PUFF INH IH SCH ×2 (07:36→20:03)
[2019-09-04 07:37] LABS: Basophils # 0.1 K/mcL (0.0-0.2); Basophils % 0.2 %; Eosinophils # 0.2 K/mcL (0.0-0.6); Eosinophils % 0.8 %; Hematocrit 26.2 % (37.5-50.1); Hemoglobin 7.9 g/dL (12.9-16.9); Immature Granulocytes % 3.4 % (0-4); Lymphocytes # 1.5 K/mcL (0.6-4.6); Lymphocytes % 6.4 %; Mean Corpuscular HGB Conc 30.2 g/dL (31.6-35.5); Mean Corpuscular Hemoglobin 30.5 pg (28.0-33.3); Mean Corpuscular Volume 101.2 fL (83.0-100.0); Mean Platelet Volume 11.1 fL (9.4-12.4); Monocytes % 4.4 %; Neutrophils # 19.7 K/mcL (1.6-8.9); Nucleated Red Blood Cells 0.1 /100 WBC (0); Platelet Count 348 K/mcL (140-400); Red Blood Count 2.59 M/mcL (4.19-5.50); Red Cell Distribution Width 15.9 % (11.5-14.5); Segmented Neutrophils % 84.8 %; White Blood Count 23.2 K/mcL (4.3-11.1)
[2019-09-04] MEDS: Pantoprazole 40 MG VIAL IVP SCH (09:02)
[2019-09-04] MEDS: Aspirin 81 MG TAB.CHEW PO SCH (09:02)
[2019-09-04] MEDS: Fluconazole 200 MG/100 ML 200 MG/100 ML BAG IVPB SCH (09:02)
[2019-09-04 13:21] LABS: BUN/Creatinine Ratio 39 (6-26); Blood Urea Nitrogen 19 mg/dL (8-23); Calcium 9.2 mg/dL (8.6-10.3); Carbon Dioxide 22 mEq/L (23-29); Chloride 111 mEq/L (98-107); Glucose 128 mg/dL (70-105); Magnesium 2.2 mg/dL (1.6-2.6); Osmolality,Calculated 294 (280-300); Phosphorous 2.6 mg/dL (2.7-4.5); Potassium 4.2 mEq/L (3.5-5.1); Sodium 140 mEq/L (136-145); eGFR For African Americans > 60 (> 60); eGFR For Non-African Americans > 60 (> 60)
[2019-09-04] MEDS ORDERED: [UNRECOGNIZED DRUG - OTHER] IVC SCH (17:00)
[2019-09-04] MEDS ORDERED: MVI IVC SCH (17:00)
[2019-09-04] MEDS ORDERED: PARENTERAL AMINO ACID 10% IVC SCH (17:00)
[2019-09-04] MEDS ORDERED: CLINIMIX E IVC SCH (17:00)
[2019-09-04] MEDS: Haloperidol Lactate 5 MG/ML VIAL IVP PRN (21:49)
[2019-09-05] MEDS: Acetylcysteine 10% 2 ML INHSOL IH SCH ×6 (00:11→20:53)
[2019-09-05] MEDS: Albuterol 2.5 MG/3 ML NEBULIZER IH SCH ×6 (00:11→20:53)
[2019-09-05] MEDS: Insulin LISPRO 300 UNITS/3 ML VIAL SQ SCH ×4 (01:46→11:51)
[2019-09-05] MEDS: Haloperidol Lactate 5 MG/ML VIAL IVP SCH ×3 (04:24→11:33)
[2019-09-05] MEDS: Piperacillin/Tazobactam 3.375 GM in 0.9 % Sodium Chloride Mini Bag 100 ML IVPB SCH ×3 (04:25→19:35)
[2019-09-05 04:59] LABS: Basophils # 0.1 K/mcL (0.0-0.2); Basophils % 0.3 %; Eosinophils # 0.2 K/mcL (0.0-0.6); Eosinophils % 0.9 %; Hematocrit 26.3 % (37.5-50.1); Lymphocytes # 1.6 K/mcL (0.6-4.6); Lymphocytes % 8.1 %; Mean Corpuscular HGB Conc 30.4 g/dL (31.6-35.5); Mean Corpuscular Hemoglobin 30.5 pg (28.0-33.3); Mean Corpuscular Volume 100.4 fL (83.0-100.0); Mean Platelet Volume 11.2 fL (9.4-12.4); Monocytes % 5.1 %; Neutrophils # 16.2 K/mcL (1.6-8.9); Nucleated Red Blood Cells 0.1 /100 WBC (0); Platelet Count 313 K/mcL (140-400); Red Blood Count 2.62 M/mcL (4.19-5.50); Red Cell Distribution Width 16.1 % (11.5-14.5); Segmented Neutrophils % 82.6 %; White Blood Count 19.6 K/mcL (4.3-11.1)
[2019-09-05 05:03] LABS: VBG Ionized Calcium 1.39 mmol/L (1.15-1.35)
[2019-09-05 05:22] LABS: BUN/Creatinine Ratio 35 (6-26); Blood Urea Nitrogen 18 mg/dL (8-23); Calcium 9.5 mg/dL (8.6-10.3); Carbon Dioxide 21 mEq/L (23-29); Chloride 113 mEq/L (98-107); Glucose 92 mg/dL (70-105); Osmolality,Calculated 284 (280-300); Phosphorous 2.9 mg/dL (2.7-4.5); Potassium 4.2 mEq/L (3.5-5.1); Sodium 136 mEq/L (136-145); eGFR For African Americans > 60 (> 60); eGFR For Non-African Americans > 60 (> 60)
[2019-09-05] MEDS: *HR* Metoprolol 5 MG/5 ML VIAL IVP SCH ×2 (05:35→11:33)
[2019-09-05] MEDS: *HR* Heparin 5,000 UNIT/ML VIAL SQ SCH (05:36)
[2019-09-05] MEDS: Acetaminophen IV 1,000 MG/100 ML INFUS..BTL IVPB SCH ×2 (05:36→11:34)
[2019-09-05] MEDS: Pantoprazole 40 MG VIAL IVP SCH (07:30)
[2019-09-05] MEDS: Aspirin 81 MG TAB.CHEW PO SCH (07:31)
[2019-09-05] MEDS: Fluconazole 200 MG/100 ML 200 MG/100 ML BAG IVPB SCH (07:31)
[2019-09-05] MEDS: Budesonide/Formoterol 160/4.5 1 PUFF INH IH SCH ×2 (07:45→21:56)
[2019-09-05] MEDS ORDERED: *HR* Midazolam HCl 2 MG/2 ML VIAL ONE (15:39)
[2019-09-05] MEDS ORDERED: Lidocaine HCL 4 ML Topical Solution (Laryng-O-Jet Kit Sterile Pak) TP ONE (15:40)
[2019-09-05] MEDS ORDERED: *HR* Rocuronium Bromide 50 MG/5 ML VIAL ONE ×5 (15:40→22:42)
[2019-09-05] MEDS ORDERED: Ondansetron 4 MG/2 ML VIAL ONE (15:40)
[2019-09-05] MEDS ORDERED: Lidocaine -MPF 2% 2 ML VIAL ONE (15:40)
[2019-09-05] MEDS ORDERED: *HR* Propofol 200 MG/20 ML VIAL IVP ONE (15:41)
[2019-09-05] MEDS ORDERED: *HR* FentaNYL (PF) 100 MCG/2 ML VIAL ONE ×3 (15:41→20:36)
[2019-09-05] MEDS ORDERED: Albumin Human 5% 25.0 GM/500 ML VIAL ONE ×2 (16:34→19:07)
[2019-09-05] MEDS ORDERED: *HR* Vasopressin 20 UNIT/ML VIAL ONE (16:34)
[2019-09-05] MEDS ORDERED: *HR* PHENYLEPHRINE 1,000 MCG/10 ML SYRINGE IVP ONE (16:52)
[2019-09-05] MEDS ORDERED: CLINIMIX E IVC SCH (17:00)
[2019-09-05] MEDS ORDERED: [UNRECOGNIZED DRUG - OTHER] IVC SCH (17:00)
[2019-09-05] MEDS ORDERED: MVI IVC SCH (17:00)
[2019-09-05] MEDS ORDERED: PARENTERAL AMINO ACID 10% IVC SCH (17:00)
[2019-09-05] MEDS ORDERED: CefOXitin 2,000 MG VIAL ONE ×2 (18:48→18:57)
[2019-09-05] MEDS ORDERED: CefOXitin 1,000 MG VIAL ONE (18:49)
[2019-09-05] MEDS ORDERED: *HR* Phenylephrine 10 MG/ML VIAL ONE (19:15)
[2019-09-05 20:16] LABS: Basophils # 0.1 K/mcL (0.0-0.2); Basophils % 0.3 %; Eosinophils # 0.1 K/mcL (0.0-0.6); Eosinophils % 0.6 %; Hemoglobin 8.4 g/dL (12.9-16.9); Immature Granulocytes % 3.5 % (0-4); Lymphocytes # 1.2 K/mcL (0.6-4.6); Mean Corpuscular HGB Conc 31.1 g/dL (31.6-35.5); Mean Corpuscular Volume 96.4 fL (83.0-100.0); Mean Platelet Volume 11.3 fL (9.4-12.4); Monocytes # 0.9 K/mcL (0.0-1.3); Monocytes % 4.5 %; Neutrophils # 17.4 K/mcL (1.6-8.9); Nucleated Red Blood Cells 0.1 /100 WBC (0); Platelet Count 367 K/mcL (140-400); Red Cell Distribution Width 17.1 % (11.5-14.5); Segmented Neutrophils % 85.1 %; White Blood Count 20.5 K/mcL (4.3-11.1)
[2019-09-05 20:25] LABS: BUN/Creatinine Ratio 28 (6-26); Blood Urea Nitrogen 19 mg/dL (8-23); Carbon Dioxide 21 mEq/L (23-29); Chloride 113 mEq/L (98-107); Glucose 102 mg/dL (70-105); Osmolality,Calculated 292 (280-300); Potassium 4.6 mEq/L (3.5-5.1); Sodium 140 mEq/L (136-145); eGFR For African Americans > 60 (> 60); eGFR For Non-African Americans > 60 (> 60)
[2019-09-05] MEDS ORDERED: Dexamethasone 4 MG/ML VIAL ONE (22:05)
[2019-09-05] MEDS: Phenylephrine 10 MG in 0.9 % Sodium Chloride 250 ML IVC SCH (23:30)
[2019-09-05] MEDS ORDERED: Vasopressin 40 UNIT in D5% in Water 100 ML IVC ONE (23:30)
[2019-09-05] MEDS: Vasopressin 40 UNIT in D5% in Water 100 ML IVC SCH (23:40)
[2019-09-06] MEDS ORDERED: *HR* Midazolam HCl 2 MG/2 ML VIAL ONE (00:16)
[2019-09-06] MEDS ORDERED: Neostigmine Methylsulfate 3 MG/3 ML SYRINGE ONE (00:32)
[2019-09-06] MEDS: Albuterol 2.5 MG/3 ML NEBULIZER IH SCH (00:49)
[2019-09-06] MEDS: Acetylcysteine 10% 2 ML INHSOL IH SCH (00:49)
[2019-09-06] MEDS: Insulin LISPRO 300 UNITS/3 ML VIAL SQ SCH ×9 (01:06→23:34)
[2019-09-06] MEDS: *HR* Heparin 5,000 UNIT/ML VIAL SQ SCH ×3 (01:06→17:08)
[2019-09-06] MEDS: Haloperidol Lactate 5 MG/ML VIAL IVP SCH ×3 (01:06→01:30)
[2019-09-06] MEDS: *HR* Metoprolol 5 MG/5 ML VIAL IVP SCH ×6 (01:07→23:03)
[2019-09-06] MEDS: Acetaminophen IV 1,000 MG/100 ML INFUS..BTL IVPB SCH ×5 (01:07→23:35)
[2019-09-06] MEDS ORDERED: Dexmedetomidine HCl 400 MCG/100 ML MLS IVC ONE (01:08)
[2019-09-06] MEDS: Dexmedetomidine HCl 400 MCG/100 ML MLS IVC SCH ×4 (01:10→23:03)
[2019-09-06] MEDS ORDERED: Naloxone 0.4 MG/ML INJ IVP PRN (01:31)
[2019-09-06] MEDS ORDERED: CLINIMIX E IVC SCH (01:31)
[2019-09-06] MEDS ORDERED: PARENTERAL AMINO ACID 10% IVC SCH ×2 (01:31→17:00)
[2019-09-06] MEDS ORDERED: Calcium Gluconate 1gm/50mL 1 GM/50 ML BAG IVPB PRN (01:31)
[2019-09-06] MEDS ORDERED: *HR* Dextrose 50 % in Water (Syg) 50 ML SYRINGE IVP PRN ×2 (01:31→11:32)
[2019-09-06] MEDS ORDERED: Saliva Stimulant 100ml BOTTLE PO PRN (01:31)
[2019-09-06] MEDS ORDERED: Ondansetron 4 MG/2 ML VIAL IVP PRN (01:31)
[2019-09-06] MEDS ORDERED: Artificial Tears SOLN 15 ML BOTTLE BOTH EYES PRN (01:31)
[2019-09-06] MEDS ORDERED: D10% in Water 500 ML IVC PRN (01:31)
[2019-09-06] MEDS ORDERED: Dextrose Gel 15 GM/37.5 ML TUBE PO PRN ×2 (01:31)
[2019-09-06] MEDS ORDERED: D5% in Water 1,000 ML IVC PRN (01:31)
[2019-09-06] MEDS ORDERED: [UNRECOGNIZED DRUG - OTHER] IVC SCH (01:31)
[2019-09-06] MEDS ORDERED: MVI IVC SCH ×2 (01:31→17:00)
[2019-09-06] MEDS: Ipratropium/Albuterol Neb 3 ML IH PRN ×2 (03:34→07:36)
[2019-09-06] MEDS ORDERED: Acetylcysteine 10% 2 ML INHSOL IH SCH (04:00)
[2019-09-06 04:39] LABS: ABG Base Excess -8 mEq/L (-2 to 3); ABG HCO3 20 mEq/L (21-27); ABG Oxygen Saturation 94 % (95-98); ABG PCO2 55 mmHg (35-45); ABG PH 7.17 pH Units (7.32-7.45); ABG PO2 92 mmHg (85-104); ABG TCO2 22 mEq/L (20-26); Blood Gas VT 500 cc
[2019-09-06] MEDS: FentaNYL (PF) 1,000 MCG in 0.9 % Sodium Chloride 80 ML IVC SCH ×4 (04:45→21:06)
[2019-09-06] MEDS ORDERED: *HR* HYDROmorphone 2 MG/ML SYRINGE IVP ONE ×2 (05:19→06:19)
[2019-09-06] MEDS ORDERED: Acetaminophen IV 1,000 MG/100 ML INFUS..BTL IVPB SCH (05:21)
[2019-09-06] MEDS: Artificial Tears SOLN 15 ML BOTTLE BOTH EYES SCH ×6 (05:51→23:35)
[2019-09-06] MEDS: Piperacillin/Tazobactam 3.375 GM in 0.9 % Sodium Chloride Mini Bag 100 ML IVPB SCH ×2 (05:51→11:22)
[2019-09-06 06:10] LABS: BUN/Creatinine Ratio 21 (6-26); Blood Urea Nitrogen 28 mg/dL (8-23); Calcium 9.1 mg/dL (8.6-10.3); Carbon Dioxide 19 mEq/L (23-29); Chloride 113 mEq/L (98-107); Glucose 243 mg/dL (70-105); Magnesium 1.9 mg/dL (1.6-2.6); Osmolality,Calculated 302 (280-300); Phosphorous 6.1 mg/dL (2.7-4.5); Potassium 5.5 mEq/L (3.5-5.1); Sodium 139 mEq/L (136-145); eGFR For African Americans > 60 (> 60); eGFR For Non-African Americans 53 (> 60)
[2019-09-06] MEDS: Phenylephrine 10 MG in 0.9 % Sodium Chloride 250 ML IVC SCH (06:42)
[2019-09-06] MEDS: Norepinephrine 4 MG in 0.9 % Sodium Chloride 250 ML IVC SCH ×2 (06:50→15:30)
[2019-09-06 07:07] LABS: ABG Base Excess -9 mEq/L (-2 to 3); ABG HCO3 20 mEq/L (21-27); ABG Oxygen Saturation 96 % (95-98); ABG PCO2 67 mmHg (35-45); ABG PH 7.09 pH Units (7.32-7.45); ABG PO2 109 mmHg (85-104); ABG TCO2 23 mEq/L (20-26); Blood Gas Modality ASSIST CONTROL; Blood Gas VT 500 cc
[2019-09-06] MEDS ORDERED: *HR* Alteplase (Cathflo) 2 MG VIAL IVP ONE (07:38)
[2019-09-06 07:57] LABS: Hematocrit 27.2 % (37.5-50.1); Hemoglobin 8.2 g/dL (12.9-16.9); Mean Corpuscular HGB Conc 30.1 g/dL (31.6-35.5); Mean Corpuscular Hemoglobin 30.8 pg (28.0-33.3); Mean Corpuscular Volume 102.3 fL (83.0-100.0); Mean Platelet Volume 10.6 fL (9.4-12.4); Platelet Count 310 K/mcL (140-400); Red Blood Count 2.66 M/mcL (4.19-5.50); Red Cell Distribution Width 17.4 % (11.5-14.5)
[2019-09-06] MEDS: Pantoprazole 40 MG VIAL IVP SCH (07:58)
[2019-09-06] MEDS: Chlorhexidine Rinse 15 ML MOUTHWASH MM SCH ×2 (07:58→20:13)
[2019-09-06 08:13] LABS: White Blood Count 32.1 K/mcL (4.3-11.1)
[2019-09-06 08:41] LABS: Monocytes # 1.9 K/mcL (0.0-1.3); Neutrophils # 30.2 K/mcL (1.6-8.9)
[2019-09-06 08:42] LABS: Anisocytosis 1+ (Not Present); Platelet Estimate Normal (Normal); Polychromasia 1+ (Not Present)
[2019-09-06] MEDS: Cisatracurium 200 MG in 0.9 % Sodium Chloride 180 ML IVC SCH (08:47)
[2019-09-06] MEDS ORDERED: Fluconazole 200 MG/100 ML 200 MG/100 ML BAG IVPB SCH (09:00)
[2019-09-06 10:09] LABS: INR 1.3; Prothrombin Time 14.3 Seconds (9.4-12.1)
[2019-09-06 10:16] LABS: Chloride,Urine < 15 mEq/L; Creatinine,Urine 11 mg/dL; Potassium,Urine < 2.0 mEq/L; Sodium, Urine < 10.0 mEq/L
[2019-09-06 10:23] LABS: Albumin 2.2 g/dL (3.5-5.7); Albumin/Globulin Ratio 0.8 (1.1-2.2); Bilirubin,Direct 0.5 mg/dL (0.0-0.2); Bilirubin,Indirect 0.4 mg/dL (0.0-1.0); Bilirubin,Total 0.9 mg/dL (0.3-1.0); Globulin 2.6 g/dL (2.4-3.5); Total Protein 4.8 g/dL (6.4-8.9)
[2019-09-06] MEDS: Budesonide/Formoterol 160/4.5 1 PUFF INH IH SCH ×2 (11:12→21:27)
[2019-09-06] MEDS ORDERED: Sodium Bicarbonate 50 MEQ/50 ML VIAL ONE (11:29)
[2019-09-06 11:35] LABS: ABG Base Excess -13 mEq/L (-2 to 3); ABG HCO3 20 mEq/L (21-27); ABG Oxygen Saturation 93 % (95-98); ABG PCO2 78 mmHg (35-45); ABG PH 7.01 pH Units (7.32-7.45); ABG PO2 104 mmHg (85-104); ABG TCO2 22 mEq/L (20-26); Blood Gas VT 500 cc
[2019-09-06] MEDS ORDERED: Sodium Bicarbonate 50 MEQ/50 ML VIAL IVP ONE (11:43)
[2019-09-06] MEDS ORDERED: Insulin Human Regular 100 UNIT in 0.9 % Sodium Chloride 100 ML IVC SCH (11:45)
[2019-09-06 12:06] LABS: ABG Base Excess -7 mEq/L (-2 to 3); ABG HCO3 24 mEq/L (21-27); ABG Oxygen Saturation 88 % (95-98); ABG PCO2 98 mmHg (35-45); ABG PH 7.01 pH Units (7.32-7.45); ABG PO2 84 mmHg (85-104); ABG TCO2 27 mEq/L (20-26); Blood Gas VT 500 cc
[2019-09-06] MEDS ORDERED: Sodium Bicarbonate 150 MEQ in D5% in Water 1,000 ML IVC SCH (12:30)
[2019-09-06 13:13] LABS: ABG Base Excess -8 mEq/L (-2 to 3); ABG HCO3 22 mEq/L (21-27); ABG Oxygen Saturation 94 % (95-98); ABG PCO2 60 mmHg (35-45); ABG PH 7.17 pH Units (7.32-7.45); ABG PO2 92 mmHg (85-104); ABG TCO2 24 mEq/L (20-26); Blood Gas VT 550 cc
[2019-09-06] MEDS ORDERED: Perflutren Lipid Microsphere 1.3 ML in 0.9 % Sodium Chloride 8.7 ML IVP ONE (13:42)
[2019-09-06] MEDS: Vasopressin 40 UNIT in D5% in Water 100 ML IVC SCH (14:46)
[2019-09-06 16:53] LABS: BUN/Creatinine Ratio 34 (6-26); Blood Urea Nitrogen 37 mg/dL (8-23); Calcium 8.9 mg/dL (8.6-10.3); Carbon Dioxide 22 mEq/L (23-29); Chloride 112 mEq/L (98-107); Glucose 244 mg/dL (70-105); Osmolality,Calculated 303 (280-300); Potassium 4.3 mEq/L (3.5-5.1); Sodium 138 mEq/L (136-145); eGFR For African Americans > 60 (> 60); eGFR For Non-African Americans > 60 (> 60)
[2019-09-06] MEDS ORDERED: CLINIMIX IVC SCH (17:00)
[2019-09-06] MEDS ORDERED: [UNRECOGNIZED DRUG - OTHER] IVC SCH (17:00)
[2019-09-06] MEDS: Sodium Bicarbonate 150 MEQ in D5% in Water 1,000 ML IVC SCH (17:34)
[2019-09-06] MEDS: Meropenem 1,000 MG in 0.9 % Sodium Chloride Mini Bag 100 ML IVPB SCH ×2 (17:37→23:38)
[2019-09-06] MEDS: Micafungin 100 MG in 0.9 % Sodium Chloride Mini Bag 100 ML IVPB SCH (18:18)
[2019-09-06 22:47] LABS: BUN/Creatinine Ratio 40 (6-26); Blood Urea Nitrogen 39 mg/dL (8-23); Calcium 8.9 mg/dL (8.6-10.3); Carbon Dioxide 25 mEq/L (23-29); Chloride 108 mEq/L (98-107); Glucose 95 mg/dL (70-105); Osmolality,Calculated 299 (280-300); Potassium 4.6 mEq/L (3.5-5.1); Sodium 140 mEq/L (136-145); eGFR For African Americans > 60 (> 60); eGFR For Non-African Americans > 60 (> 60)
[2019-09-07] MEDS: Cisatracurium 200 MG in 0.9 % Sodium Chloride 180 ML IVC SCH (02:01)
[2019-09-07] MEDS: FentaNYL (PF) 1,000 MCG in 0.9 % Sodium Chloride 80 ML IVC SCH ×3 (02:06→14:59)
[2019-09-07] MEDS: Sodium Bicarbonate 150 MEQ in D5% in Water 1,000 ML IVC SCH ×2 (02:06→23:38)
[2019-09-07] MEDS: Artificial Tears SOLN 15 ML BOTTLE BOTH EYES SCH ×6 (03:48→23:44)
[2019-09-07] MEDS: Insulin LISPRO 300 UNITS/3 ML VIAL SQ SCH ×5 (03:48→20:49)
[2019-09-07 04:05] LABS: ABG Base Excess 1 mEq/L (-2 to 3); ABG HCO3 26 mEq/L (21-27); ABG Oxygen Saturation 94 % (95-98); ABG PCO2 44 mmHg (35-45); ABG PH 7.38 pH Units (7.32-7.45); ABG PO2 73 mmHg (85-104); ABG TCO2 28 mEq/L (20-26); Blood Gas Modality AF; Blood Gas VT 550 cc
[2019-09-07] MEDS: Dexmedetomidine HCl 400 MCG/100 ML MLS IVC SCH ×3 (04:07→23:38)
[2019-09-07] MEDS: *HR* Metoprolol 5 MG/5 ML VIAL IVP SCH ×3 (04:07→20:16)
[2019-09-07 04:21] LABS: BUN/Creatinine Ratio 45 (6-26); Blood Urea Nitrogen 40 mg/dL (8-23); Carbon Dioxide 26 mEq/L (23-29); Chloride 113 mEq/L (98-107); Glucose 131 mg/dL (70-105); Osmolality,Calculated 292 (280-300); Phosphorous 3.9 mg/dL (2.7-4.5); Potassium 4.2 mEq/L (3.5-5.1); Sodium 135 mEq/L (136-145); eGFR For African Americans > 60 (> 60); eGFR For Non-African Americans > 60 (> 60)
[2019-09-07] MEDS: Acetaminophen IV 1,000 MG/100 ML INFUS..BTL IVPB SCH (05:24)
[2019-09-07] MEDS: *HR* Heparin 5,000 UNIT/ML VIAL SQ SCH ×2 (05:25→17:55)
[2019-09-07] MEDS: Norepinephrine 4 MG in 0.9 % Sodium Chloride 250 ML IVC SCH (06:02)
[2019-09-07 06:21] LABS: Basophils % 0.2 %; Hematocrit 24.8 % (37.5-50.1); Hemoglobin 7.8 g/dL (12.9-16.9); Immature Granulocytes % 1.4 % (0-4); Lymphocytes % 4.6 %; Mean Corpuscular HGB Conc 31.5 g/dL (31.6-35.5); Mean Corpuscular Hemoglobin 30.4 pg (28.0-33.3); Mean Corpuscular Volume 96.5 fL (83.0-100.0); Mean Platelet Volume 11.4 fL (9.4-12.4); Monocytes # 1.2 K/mcL (0.0-1.3); Monocytes % 5.5 %; Neutrophils # 19.4 K/mcL (1.6-8.9); Nucleated Red Blood Cells 0.1 /100 WBC (0); Platelet Count 279 K/mcL (140-400); Red Blood Count 2.57 M/mcL (4.19-5.50); Red Cell Distribution Width 17.1 % (11.5-14.5); Segmented Neutrophils % 88.3 %
[2019-09-07] MEDS: Meropenem 1,000 MG in 0.9 % Sodium Chloride Mini Bag 100 ML IVPB SCH ×3 (07:27→23:44)
[2019-09-07] MEDS: Pantoprazole 40 MG VIAL IVP SCH (07:28)
[2019-09-07] MEDS: Chlorhexidine Rinse 15 ML MOUTHWASH MM SCH ×2 (07:28→20:17)
[2019-09-07] MEDS: Micafungin 100 MG in 0.9 % Sodium Chloride Mini Bag 100 ML IVPB SCH (08:23)
[2019-09-07 08:42] LABS: Alanine Aminotransferase 43 Units/L (7-52); Albumin 2.1 g/dL (3.5-5.7); Albumin/Globulin Ratio 0.8 (1.1-2.2); Alkaline Phosphatase 110 Units/L (34-104); Aspartate Amino Transferase 28 Units/L (13-39); Bilirubin,Direct 0.3 mg/dL (0.0-0.2); Bilirubin,Indirect 0.2 mg/dL (0.0-1.0); Bilirubin,Total 0.5 mg/dL (0.3-1.0); Globulin 2.6 g/dL (2.4-3.5); Total Protein 4.7 g/dL (6.4-8.9)
[2019-09-07] MEDS: Budesonide/Formoterol 160/4.5 1 PUFF INH IH SCH ×2 (09:54→19:30)
[2019-09-07] MEDS ORDERED: PARENTERAL AMINO ACID 10% IVC SCH (17:00)
[2019-09-07] MEDS ORDERED: [UNRECOGNIZED DRUG - OTHER] IVC SCH (17:00)
[2019-09-07] MEDS ORDERED: CLINIMIX E IVC SCH (17:00)
[2019-09-07] MEDS ORDERED: MVI IVC SCH (17:00)
[2019-09-07] MEDS: Acetaminophen IV 1,000 MG/100 ML INFUS..BTL IVPB PRN (21:15)
[2019-09-08] MEDS: Phenylephrine 10 MG in 0.9 % Sodium Chloride 250 ML IVC SCH (01:19)
[2019-09-08] MEDS: Vasopressin 40 UNIT in D5% in Water 100 ML IVC SCH (01:19)
[2019-09-08] MEDS: *HR* Metoprolol 5 MG/5 ML VIAL IVP SCH ×5 (01:20→23:39)
[2019-09-08] MEDS: Artificial Tears SOLN 15 ML BOTTLE BOTH EYES SCH ×6 (03:14→23:39)
[2019-09-08 04:10] LABS: Basophils % 0.1 %; Eosinophils % 0.1 %; Hematocrit 21.2 % (37.5-50.1); Hemoglobin 6.5 g/dL (12.9-16.9); Immature Granulocytes % 1.1 % (0-4); Lymphocytes # 0.9 K/mcL (0.6-4.6); Lymphocytes % 5.8 %; Mean Corpuscular HGB Conc 30.7 g/dL (31.6-35.5); Mean Corpuscular Volume 97.7 fL (83.0-100.0); Monocytes # 0.8 K/mcL (0.0-1.3); Monocytes % 5.6 %; Platelet Count 264 K/mcL (140-400); Red Blood Count 2.17 M/mcL (4.19-5.50); Red Cell Distribution Width 16.6 % (11.5-14.5); Segmented Neutrophils % 87.3 %; White Blood Count 14.9 K/mcL (4.3-11.1)
[2019-09-08 04:17] LABS: BUN/Creatinine Ratio 46 (6-26); Blood Urea Nitrogen 36 mg/dL (8-23); Calcium 9.1 mg/dL (8.6-10.3); Carbon Dioxide 31 mEq/L (23-29); Chloride 109 mEq/L (98-107); Glucose 161 mg/dL (70-105); Magnesium 2.4 mg/dL (1.6-2.6); Osmolality,Calculated 304 (280-300); Phosphorous 2.5 mg/dL (2.7-4.5); Potassium 4.1 mEq/L (3.5-5.1); Sodium 141 mEq/L (136-145); eGFR For African Americans > 60 (> 60); eGFR For Non-African Americans > 60 (> 60)
[2019-09-08] MEDS: Insulin LISPRO 300 UNITS/3 ML VIAL SQ SCH ×7 (04:34→23:40)
[2019-09-08] MEDS ORDERED: 0.9 % Sodium Chloride 250 ML ONE ×2 (04:52→09:43)
[2019-09-08 05:32] LABS: ABG Base Excess 5 mEq/L (-2 to 3); ABG HCO3 32 mEq/L (21-27); ABG Oxygen Saturation 91 % (95-98); ABG PCO2 62 mmHg (35-45); ABG PH 7.32 pH Units (7.32-7.45); ABG PO2 69 mmHg (85-104); ABG TCO2 34 mEq/L (20-26); Blood Gas Modality ASSIST CONTROL; Blood Gas VT 550 cc
[2019-09-08] MEDS: Dexmedetomidine HCl 400 MCG/100 ML MLS IVC SCH ×3 (05:52→16:39)
[2019-09-08] MEDS: *HR* Heparin 5,000 UNIT/ML VIAL SQ SCH ×2 (05:52→16:49)
[2019-09-08] MEDS: Budesonide/Formoterol 160/4.5 1 PUFF INH IH SCH ×2 (07:18→19:28)
[2019-09-08] MEDS: Chlorhexidine Rinse 15 ML MOUTHWASH MM SCH ×2 (08:15→19:43)
[2019-09-08] MEDS: Micafungin 100 MG in 0.9 % Sodium Chloride Mini Bag 100 ML IVPB SCH (08:16)
[2019-09-08] MEDS: Meropenem 1,000 MG in 0.9 % Sodium Chloride Mini Bag 100 ML IVPB SCH ×3 (08:16→23:40)
[2019-09-08] MEDS: Cisatracurium 200 MG in 0.9 % Sodium Chloride 180 ML IVC SCH (08:16)
[2019-09-08] MEDS: Pantoprazole 40 MG VIAL IVP SCH (08:16)
[2019-09-08] MEDS: Potassium Phosphate 44 MEQ in 0.9 % Sodium Chloride 250 ML IVPB PRN ×2 (09:22→21:16)
[2019-09-08] MEDS: Ipratropium/Albuterol Neb 3 ML IH PRN ×2 (12:11→15:33)
[2019-09-08] MEDS ORDERED: [UNRECOGNIZED DRUG - OTHER] IVC SCH (17:00)
[2019-09-08] MEDS ORDERED: CLINIMIX E IVC SCH (17:00)
[2019-09-08] MEDS ORDERED: MVI IVC SCH (17:00)
[2019-09-08] MEDS ORDERED: PARENTERAL AMINO ACID 10% IVC SCH (17:00)
[2019-09-09] MEDS: Vasopressin 40 UNIT in D5% in Water 100 ML IVC SCH ×2 (00:04→22:23)
[2019-09-09] MEDS: Phenylephrine 10 MG in 0.9 % Sodium Chloride 250 ML IVC SCH ×2 (00:04→22:23)
[2019-09-09] MEDS: Ipratropium/Albuterol Neb 3 ML IH PRN ×4 (00:11→23:33)
[2019-09-09] MEDS: Dexmedetomidine HCl 400 MCG/100 ML MLS IVC SCH ×5 (01:31→23:27)
[2019-09-09] MEDS: Artificial Tears SOLN 15 ML BOTTLE BOTH EYES SCH ×6 (03:28→23:03)
[2019-09-09 04:00] LABS: BUN/Creatinine Ratio 62 (6-26); Blood Urea Nitrogen 32 mg/dL (8-23); Calcium 9.3 mg/dL (8.6-10.3); Carbon Dioxide 30 mEq/L (23-29); Chloride 112 mEq/L (98-107); Glucose 129 mg/dL (70-105); Magnesium 2.5 mg/dL (1.6-2.6); Osmolality,Calculated 307 (280-300); Potassium 5.2 mEq/L (3.5-5.1); Sodium 144 mEq/L (136-145); eGFR For African Americans > 60 (> 60); eGFR For Non-African Americans > 60 (> 60)
[2019-09-09 04:12] LABS: ABG PH 7.41 pH Units (7.32-7.45)
[2019-09-09 04:13] LABS: ABG Base Excess 5 mEq/L (-2 to 3); ABG HCO3 30 mEq/L (21-27); ABG Oxygen Saturation 92 % (95-98); ABG PCO2 48 mmHg (35-45); ABG PO2 65 mmHg (85-104); ABG TCO2 32 mEq/L (20-26); Blood Gas Modality ASSIST CONTROL; Blood Gas VT 550 cc
[2019-09-09] MEDS: Insulin LISPRO 300 UNITS/3 ML VIAL SQ SCH ×6 (04:15→22:53)
[2019-09-09] MEDS: *HR* Heparin 5,000 UNIT/ML VIAL SQ SCH ×2 (05:12→17:12)
[2019-09-09] MEDS: *HR* Metoprolol 5 MG/5 ML VIAL IVP SCH ×4 (05:12→23:03)
[2019-09-09] MEDS: Norepinephrine 4 MG in 0.9 % Sodium Chloride 250 ML IVC SCH (05:18)
[2019-09-09 07:36] LABS: Basophils % 0.3 %; Eosinophils # 0.1 K/mcL (0.0-0.6); Eosinophils % 0.4 %; Hematocrit 26.1 % (37.5-50.1); Lymphocytes # 0.8 K/mcL (0.6-4.6); Lymphocytes % 7.1 %; Mean Corpuscular HGB Conc 31.4 g/dL (31.6-35.5); Mean Corpuscular Hemoglobin 29.9 pg (28.0-33.3); Mean Corpuscular Volume 95.3 fL (83.0-100.0); Mean Platelet Volume 10.6 fL (9.4-12.4); Monocytes # 0.7 K/mcL (0.0-1.3); Neutrophils # 9.7 K/mcL (1.6-8.9); Platelet Count 254 K/mcL (140-400); Red Blood Count 2.74 M/mcL (4.19-5.50); Red Cell Distribution Width 17.2 % (11.5-14.5); Segmented Neutrophils % 85.2 %; White Blood Count 11.4 K/mcL (4.3-11.1)
[2019-09-09 07:37] LABS: Hemoglobin 8.2 g/dL (12.9-16.9)
[2019-09-09] MEDS: Budesonide/Formoterol 160/4.5 1 PUFF INH IH SCH ×2 (07:38→19:50)
[2019-09-09] MEDS: Meropenem 1,000 MG in 0.9 % Sodium Chloride Mini Bag 100 ML IVPB SCH ×3 (08:03→23:03)
[2019-09-09] MEDS: Chlorhexidine Rinse 15 ML MOUTHWASH MM SCH ×2 (08:03→19:11)
[2019-09-09] MEDS: Pantoprazole 40 MG VIAL IVP SCH (08:03)
[2019-09-09] MEDS: Micafungin 100 MG in 0.9 % Sodium Chloride Mini Bag 100 ML IVPB SCH (08:03)
[2019-09-09] MEDS ORDERED: Furosemide 40 MG/4 ML VIAL IVP ONE ×2 (08:28→15:26)
[2019-09-09] MEDS: Acetaminophen IV 1,000 MG/100 ML INFUS..BTL IVPB PRN (13:13)
[2019-09-09] MEDS ORDERED: PARENTERAL AMINO ACID 10% IVC SCH (17:00)
[2019-09-09] MEDS ORDERED: MVI IVC SCH (17:00)
[2019-09-09] MEDS ORDERED: [UNRECOGNIZED DRUG - OTHER] IVC SCH (17:00)
[2019-09-09] MEDS ORDERED: CLINIMIX E IVC SCH (17:00)
[2019-09-10] MEDS: Artificial Tears SOLN 15 ML BOTTLE BOTH EYES SCH ×6 (02:54→23:33)
[2019-09-10] MEDS: Ipratropium/Albuterol Neb 3 ML IH PRN ×6 (03:22→23:58)
[2019-09-10 03:36] LABS: Basophils % 0.1 %; Eosinophils # 0.1 K/mcL (0.0-0.6); Eosinophils % 0.6 %; Hematocrit 25.9 % (37.5-50.1); Hemoglobin 7.8 g/dL (12.9-16.9); Lymphocytes # 1.2 K/mcL (0.6-4.6); Lymphocytes % 10.1 %; Mean Corpuscular HGB Conc 30.1 g/dL (31.6-35.5); Mean Corpuscular Volume 99.6 fL (83.0-100.0); Mean Platelet Volume 10.7 fL (9.4-12.4); Monocytes # 0.8 K/mcL (0.0-1.3); Monocytes % 7.1 %; Neutrophils # 9.4 K/mcL (1.6-8.9); Platelet Count 233 K/mcL (140-400); Segmented Neutrophils % 81.1 %; White Blood Count 11.5 K/mcL (4.3-11.1)
[2019-09-10 03:56] LABS: BUN/Creatinine Ratio 57 (6-26); Blood Urea Nitrogen 29 mg/dL (8-23); Calcium 9.4 mg/dL (8.6-10.3); Carbon Dioxide 34 mEq/L (23-29); Chloride 108 mEq/L (98-107); Glucose 136 mg/dL (70-105); Magnesium 2.2 mg/dL (1.6-2.6); Osmolality,Calculated 302 (280-300); Phosphorous 2.3 mg/dL (2.7-4.5); Potassium 4.8 mEq/L (3.5-5.1); Sodium 142 mEq/L (136-145); eGFR For African Americans > 60 (> 60); eGFR For Non-African Americans > 60 (> 60)
[2019-09-10] MEDS: Insulin LISPRO 300 UNITS/3 ML VIAL SQ SCH ×6 (04:13→23:33)
[2019-09-10 04:14] LABS: ABG Base Excess 10 mEq/L (-2 to 3); ABG HCO3 38 mEq/L (21-27); ABG Oxygen Saturation 92 % (95-98); ABG PCO2 70 mmHg (35-45); ABG PH 7.34 pH Units (7.32-7.45); ABG PO2 70 mmHg (85-104); ABG TCO2 40 mEq/L (20-26); Blood Gas VT 550 cc
[2019-09-10] MEDS: Dexmedetomidine HCl 400 MCG/100 ML MLS IVC SCH ×5 (05:23→22:21)
[2019-09-10] MEDS: *HR* Heparin 5,000 UNIT/ML VIAL SQ SCH ×2 (05:24→17:17)
[2019-09-10] MEDS: *HR* Metoprolol 5 MG/5 ML VIAL IVP SCH ×4 (05:31→23:33)
[2019-09-10 06:02] LABS: ABG Base Excess 10 mEq/L (-2 to 3); ABG HCO3 37 mEq/L (21-27); ABG Oxygen Saturation 93 % (95-98); ABG PCO2 67 mmHg (35-45); ABG PH 7.35 pH Units (7.32-7.45); ABG PO2 75 mmHg (85-104); ABG TCO2 39 mEq/L (20-26); Blood Gas VT 550 cc
[2019-09-10] MEDS: Norepinephrine 4 MG in 0.9 % Sodium Chloride 250 ML IVC SCH (06:10)
[2019-09-10] MEDS: Budesonide/Formoterol 160/4.5 1 PUFF INH IH SCH ×2 (07:51→20:06)
[2019-09-10] MEDS: Pantoprazole 40 MG VIAL IVP SCH (08:59)
[2019-09-10] MEDS: Micafungin 100 MG in 0.9 % Sodium Chloride Mini Bag 100 ML IVPB SCH (08:59)
[2019-09-10] MEDS: Chlorhexidine Rinse 15 ML MOUTHWASH MM SCH ×2 (08:59→20:45)
[2019-09-10] MEDS: Meropenem 1,000 MG in 0.9 % Sodium Chloride Mini Bag 100 ML IVPB SCH ×3 (09:06→23:34)
[2019-09-10] MEDS ORDERED: CLINIMIX E IVC SCH (17:00)
[2019-09-10] MEDS ORDERED: PARENTERAL AMINO ACID 10% IVC SCH (17:00)
[2019-09-10] MEDS ORDERED: [UNRECOGNIZED DRUG - OTHER] IVC SCH (17:00)
[2019-09-10] MEDS ORDERED: MVI IVC SCH (17:00)
[2019-09-10] MEDS: Phenylephrine 10 MG in 0.9 % Sodium Chloride 250 ML IVC SCH (23:40)
[2019-09-11] MEDS: Vasopressin 40 UNIT in D5% in Water 100 ML IVC SCH (00:56)
[2019-09-11] MEDS: Dexmedetomidine HCl 400 MCG/100 ML MLS IVC SCH ×5 (01:05→19:21)
[2019-09-11] MEDS: Artificial Tears SOLN 15 ML BOTTLE BOTH EYES SCH ×6 (03:30→23:53)
[2019-09-11] MEDS: Insulin LISPRO 300 UNITS/3 ML VIAL SQ SCH ×6 (03:31→23:53)
[2019-09-11] MEDS: Ipratropium/Albuterol Neb 3 ML IH PRN ×2 (03:38→07:16)
[2019-09-11 04:06] LABS: Basophils % 0.1 %; Eosinophils # 0.1 K/mcL (0.0-0.6); Eosinophils % 1.3 %; Hematocrit 25.6 % (37.5-50.1); Hemoglobin 8.1 g/dL (12.9-16.9); Immature Granulocytes % 0.9 % (0-4); Lymphocytes # 1.2 K/mcL (0.6-4.6); Lymphocytes % 12.9 %; Mean Corpuscular HGB Conc 31.6 g/dL (31.6-35.5); Mean Corpuscular Hemoglobin 30.3 pg (28.0-33.3); Mean Corpuscular Volume 95.9 fL (83.0-100.0); Mean Platelet Volume 10.7 fL (9.4-12.4); Monocytes # 0.8 K/mcL (0.0-1.3); Monocytes % 7.8 %; Neutrophils # 7.4 K/mcL (1.6-8.9); Platelet Count 249 K/mcL (140-400); Red Blood Count 2.67 M/mcL (4.19-5.50); Red Cell Distribution Width 15.5 % (11.5-14.5); White Blood Count 9.6 K/mcL (4.3-11.1)
[2019-09-11 04:11] LABS: ABG Base Excess 13 mEq/L (-2 to 3); ABG HCO3 40 mEq/L (21-27); ABG Oxygen Saturation 92 % (95-98); ABG PCO2 65 mmHg (35-45); ABG PO2 66 mmHg (85-104); ABG TCO2 42 mEq/L (20-26); Blood Gas VT 550 cc
[2019-09-11 04:27] LABS: BUN/Creatinine Ratio 64 (6-26); Blood Urea Nitrogen 27 mg/dL (8-23); Calcium 9.4 mg/dL (8.6-10.3); Carbon Dioxide 33 mEq/L (23-29); Chloride 105 mEq/L (98-107); Glucose 147 mg/dL (70-105); Magnesium 2.2 mg/dL (1.6-2.6); Osmolality,Calculated 306 (280-300); Phosphorous 2.4 mg/dL (2.7-4.5); Potassium 4.6 mEq/L (3.5-5.1); Sodium 144 mEq/L (136-145); Triglycerides 140 mg/dL (< 150); eGFR For African Americans > 60 (> 60); eGFR For Non-African Americans > 60 (> 60)
[2019-09-11] MEDS: *HR* Metoprolol 5 MG/5 ML VIAL IVP SCH ×4 (05:25→23:52)
[2019-09-11] MEDS: *HR* Heparin 5,000 UNIT/ML VIAL SQ SCH ×2 (05:25→17:41)
[2019-09-11] MEDS: Norepinephrine 4 MG in 0.9 % Sodium Chloride 250 ML IVC SCH (05:53)
[2019-09-11] MEDS: Budesonide/Formoterol 160/4.5 1 PUFF INH IH SCH ×2 (07:31→19:42)
[2019-09-11] MEDS: Meropenem 1,000 MG in 0.9 % Sodium Chloride Mini Bag 100 ML IVPB SCH ×3 (07:44→23:52)
[2019-09-11] MEDS: Pantoprazole 40 MG VIAL IVP SCH (07:48)
[2019-09-11] MEDS: Chlorhexidine Rinse 15 ML MOUTHWASH MM SCH ×2 (07:51→20:06)
[2019-09-11] MEDS: Micafungin 100 MG in 0.9 % Sodium Chloride Mini Bag 100 ML IVPB SCH (07:51)
[2019-09-11] MEDS ORDERED: Vancomycin 1,750 MG in 0.9 % Sodium Chloride 250 ML IVPB SCH (14:00)
[2019-09-11] MEDS: Ipratropium/Albuterol Neb 3 ML IH SCH ×2 (16:27→19:42)
[2019-09-11] MEDS: CLINIMIX IVC SCH (17:34)
[2019-09-11] MEDS: MVI IVC SCH (17:34)
[2019-09-11] MEDS: PARENTERAL AMINO ACID 10% IVC SCH (17:34)
[2019-09-11] MEDS: [UNRECOGNIZED DRUG - OTHER] IVC SCH (17:34)
[2019-09-12] MEDS: Dexmedetomidine HCl 400 MCG/100 ML MLS IVC SCH ×6 (00:07→20:05)
[2019-09-12] MEDS: Ipratropium/Albuterol Neb 3 ML IH SCH ×7 (00:29→23:26)
[2019-09-12] MEDS: Artificial Tears SOLN 15 ML BOTTLE BOTH EYES SCH ×6 (03:26→23:23)
[2019-09-12] MEDS: Insulin LISPRO 300 UNITS/3 ML VIAL SQ SCH ×6 (03:26→23:23)
[2019-09-12 04:14] LABS: Basophils # 0.1 K/mcL (0.0-0.2); Basophils % 0.3 %; Eosinophils # 0.1 K/mcL (0.0-0.6); Eosinophils % 0.5 %; Hematocrit 29.2 % (37.5-50.1); Hemoglobin 9.1 g/dL (12.9-16.9); Immature Granulocytes % 1.3 % (0-4); Lymphocytes # 1.1 K/mcL (0.6-4.6); Lymphocytes % 7.1 %; Mean Corpuscular HGB Conc 31.2 g/dL (31.6-35.5); Mean Corpuscular Hemoglobin 29.6 pg (28.0-33.3); Mean Corpuscular Volume 95.1 fL (83.0-100.0); Mean Platelet Volume 11.1 fL (9.4-12.4); Monocytes # 1.2 K/mcL (0.0-1.3); Monocytes % 7.2 %; Neutrophils # 13.4 K/mcL (1.6-8.9); Nucleated Red Blood Cells 0.1 /100 WBC (0); Platelet Count 297 K/mcL (140-400); Red Blood Count 3.07 M/mcL (4.19-5.50); Red Cell Distribution Width 14.6 % (11.5-14.5); Segmented Neutrophils % 83.6 %
[2019-09-12 04:37] LABS: BUN/Creatinine Ratio 67 (6-26); Blood Urea Nitrogen 26 mg/dL (8-23); Calcium 9.7 mg/dL (8.6-10.3); Carbon Dioxide 35 mEq/L (23-29); Chloride 102 mEq/L (98-107); Glucose 163 mg/dL (70-105); Osmolality,Calculated 306 (280-300); Phosphorous 3.1 mg/dL (2.7-4.5); Potassium 4.2 mEq/L (3.5-5.1); Sodium 144 mEq/L (136-145); eGFR For African Americans > 60 (> 60); eGFR For Non-African Americans > 60 (> 60)
[2019-09-12 04:53] LABS: ABG Base Excess 10 mEq/L (-2 to 3); ABG HCO3 37 mEq/L (21-27); ABG Oxygen Saturation 88 % (95-98); ABG PCO2 65 mmHg (35-45); ABG PH 7.37 pH Units (7.32-7.45); ABG PO2 60 mmHg (85-104); ABG TCO2 39 mEq/L (20-26); Blood Gas Modality CPAP/PS; Blood Gas Pressure Support 10 cm H2O
[2019-09-12] MEDS: *HR* Metoprolol 5 MG/5 ML VIAL IVP SCH ×4 (05:17→23:22)
[2019-09-12] MEDS: *HR* Heparin 5,000 UNIT/ML VIAL SQ SCH ×2 (05:18→18:09)
[2019-09-12] MEDS ORDERED: *HR* Metoprolol 5 MG/5 ML VIAL IVP ONE ×4 (06:28→15:09)
[2019-09-12] MEDS: Budesonide/Formoterol 160/4.5 1 PUFF INH IH SCH ×2 (07:41→19:43)
[2019-09-12] MEDS: Chlorhexidine Rinse 15 ML MOUTHWASH MM SCH ×2 (08:24→20:04)
[2019-09-12] MEDS: Pantoprazole 40 MG VIAL IVP SCH (08:24)
[2019-09-12] MEDS: Micafungin 100 MG in 0.9 % Sodium Chloride Mini Bag 100 ML IVPB SCH (08:24)
[2019-09-12] MEDS: Meropenem 1,000 MG in 0.9 % Sodium Chloride Mini Bag 100 ML IVPB SCH ×3 (08:25→23:22)
[2019-09-12] MEDS ORDERED: *HR* Digoxin 0.5 MG/2 ML AMPUL IVP ONE (10:14)
[2019-09-12 14:44] LABS: Appearance of Body Fluid Cloudy (Clear); Volume of Body Fluid 23 mL
[2019-09-12] MEDS ORDERED: Amiodarone Premix 360 MG/200 ML BAG IVC ONE (15:35)
[2019-09-12] MEDS: *HR* Digoxin 0.5 MG/2 ML AMPUL IVP SCH ×2 (16:10→21:54)
[2019-09-12] MEDS: PARENTERAL AMINO ACID 10% IVC SCH (16:24)
[2019-09-12] MEDS: [UNRECOGNIZED DRUG - OTHER] IVC SCH (16:24)
[2019-09-12] MEDS: CLINIMIX IVC SCH (16:24)
[2019-09-12] MEDS: MVI IVC SCH (16:24)
[2019-09-12] MEDS ORDERED: [UNRECOGNIZED DRUG - OTHER] IVC SCH (17:00)
[2019-09-12] MEDS ORDERED: MVI IVC SCH (17:00)
[2019-09-12] MEDS ORDERED: PARENTERAL AMINO ACID 10% IVC SCH (17:00)
[2019-09-12] MEDS ORDERED: CLINIMIX IVC SCH (17:00)
[2019-09-12] MEDS: Amiodarone Premix 360 MG/200 ML BAG IVC SCH (21:46)
[2019-09-13] MEDS: Dexmedetomidine HCl 400 MCG/100 ML MLS IVC SCH ×6 (00:04→23:36)
[2019-09-13] MEDS: Ipratropium/Albuterol Neb 3 ML IH SCH ×6 (03:23→23:40)
[2019-09-13 03:26] LABS: Basophils % 0.2 %; Eosinophils # 0.2 K/mcL (0.0-0.6); Hematocrit 26.2 % (37.5-50.1); Immature Granulocytes % 1.3 % (0-4); Lymphocytes # 1.4 K/mcL (0.6-4.6); Lymphocytes % 11.9 %; Mean Corpuscular HGB Conc 30.5 g/dL (31.6-35.5); Mean Corpuscular Hemoglobin 29.1 pg (28.0-33.3); Mean Corpuscular Volume 95.3 fL (83.0-100.0); Mean Platelet Volume 10.9 fL (9.4-12.4); Monocytes # 0.7 K/mcL (0.0-1.3); Monocytes % 6.2 %; Neutrophils # 9.2 K/mcL (1.6-8.9); Nucleated Red Blood Cells 0.2 /100 WBC (0); Platelet Count 278 K/mcL (140-400); Red Blood Count 2.75 M/mcL (4.19-5.50); Red Cell Distribution Width 14.6 % (11.5-14.5); Segmented Neutrophils % 78.4 %; White Blood Count 11.7 K/mcL (4.3-11.1)
[2019-09-13] MEDS: *HR* Digoxin 0.5 MG/2 ML AMPUL IVP SCH ×2 (03:36→03:46)
[2019-09-13] MEDS: Artificial Tears SOLN 15 ML BOTTLE BOTH EYES SCH ×6 (03:36→23:01)
[2019-09-13 03:43] LABS: BUN/Creatinine Ratio 75 (6-26); Blood Urea Nitrogen 30 mg/dL (8-23); Calcium 9.2 mg/dL (8.6-10.3); Carbon Dioxide 35 mEq/L (23-29); Chloride 104 mEq/L (98-107); Glucose 143 mg/dL (70-105); Magnesium 2.1 mg/dL (1.6-2.6); Osmolality,Calculated 299 (280-300); Phosphorous 2.6 mg/dL (2.7-4.5); Potassium 3.8 mEq/L (3.5-5.1); Sodium 140 mEq/L (136-145); eGFR For African Americans > 60 (> 60); eGFR For Non-African Americans > 60 (> 60)
[2019-09-13 04:18] LABS: ABG Base Excess 11 mEq/L (-2 to 3); ABG HCO3 37 mEq/L (21-27); ABG Oxygen Saturation 91 % (95-98); ABG PCO2 58 mmHg (35-45); ABG PH 7.41 pH Units (7.32-7.45); ABG PO2 64 mmHg (85-104); ABG TCO2 38 mEq/L (20-26); Blood Gas Modality VC; Blood Gas VT 550 cc
[2019-09-13] MEDS: Insulin LISPRO 300 UNITS/3 ML VIAL SQ SCH ×6 (04:22→23:01)
[2019-09-13] MEDS: *HR* Heparin 5,000 UNIT/ML VIAL SQ SCH ×2 (04:57→17:42)
[2019-09-13] MEDS: *HR* Metoprolol 5 MG/5 ML VIAL IVP SCH ×4 (05:13→23:02)
[2019-09-13] MEDS: Potassium Phosphate 44 MEQ in 0.9 % Sodium Chloride 250 ML IVPB PRN (06:41)
[2019-09-13] MEDS: Budesonide/Formoterol 160/4.5 1 PUFF INH IH SCH ×2 (07:24→19:53)
[2019-09-13] MEDS: Meropenem 1,000 MG in 0.9 % Sodium Chloride Mini Bag 100 ML IVPB SCH ×3 (07:43→23:01)
[2019-09-13] MEDS: Chlorhexidine Rinse 15 ML MOUTHWASH MM SCH ×2 (07:43→20:13)
[2019-09-13] MEDS: Pantoprazole 40 MG VIAL IVP SCH (07:43)
[2019-09-13] MEDS: Micafungin 100 MG in 0.9 % Sodium Chloride Mini Bag 100 ML IVPB SCH (07:58)
[2019-09-13] MEDS: Amiodarone Premix 360 MG/200 ML BAG IVC SCH ×2 (10:37→22:29)
[2019-09-13 11:29] LABS: ABG Base Excess 8 mEq/L (-2 to 3); ABG HCO3 35 mEq/L (21-27); ABG Oxygen Saturation 93 % (95-98); ABG PCO2 67 mmHg (35-45); ABG PH 7.33 pH Units (7.32-7.45); ABG PO2 76 mmHg (85-104); ABG TCO2 37 mEq/L (20-26); Blood Gas Modality ASSIST CONTROL; Blood Gas VT 550 cc
[2019-09-13] MEDS ORDERED: *HR* LORazepam 2 MG/ML VIAL IVP PRN (14:42)
[2019-09-13 16:38] LABS: Phosphorous 3.5 mg/dL (2.7-4.5); Potassium 3.7 mEq/L (3.5-5.1)
[2019-09-13] MEDS ORDERED: PARENTERAL AMINO ACID 10% IVC SCH (17:00)
[2019-09-13] MEDS ORDERED: CLINIMIX IVC SCH (17:00)
[2019-09-13] MEDS ORDERED: [UNRECOGNIZED DRUG - OTHER] IVC SCH (17:00)
[2019-09-13] MEDS ORDERED: MVI IVC SCH (17:00)
[2019-09-13] MEDS: Potassium Chloride 40 MEQ/200 ML BAG IVPB PRN (17:42)
[2019-09-14 03:17] LABS: Basophils # 0.1 K/mcL (0.0-0.2); Basophils % 0.3 %; Eosinophils # 0.3 K/mcL (0.0-0.6); Eosinophils % 1.7 %; Hemoglobin 8.3 g/dL (12.9-16.9); Immature Granulocytes % 1.6 % (0-4); Lymphocytes # 1.5 K/mcL (0.6-4.6); Lymphocytes % 10.1 %; Mean Corpuscular HGB Conc 29.6 g/dL (31.6-35.5); Mean Corpuscular Volume 97.9 fL (83.0-100.0); Monocytes # 1.1 K/mcL (0.0-1.3); Monocytes % 7.3 %; Neutrophils # 11.6 K/mcL (1.6-8.9); Nucleated Red Blood Cells 0.3 /100 WBC (0); Platelet Count 259 K/mcL (140-400); Red Blood Count 2.86 M/mcL (4.19-5.50); Red Cell Distribution Width 14.7 % (11.5-14.5); White Blood Count 14.7 K/mcL (4.3-11.1)
[2019-09-14] MEDS: Artificial Tears SOLN 15 ML BOTTLE BOTH EYES SCH ×6 (03:25→23:16)
[2019-09-14 03:32] LABS: BUN/Creatinine Ratio 55 (6-26); Blood Urea Nitrogen 23 mg/dL (8-23); Calcium 9.4 mg/dL (8.6-10.3); Carbon Dioxide 32 mEq/L (23-29); Chloride 104 mEq/L (98-107); Glucose 138 mg/dL (70-105); Magnesium 2.1 mg/dL (1.6-2.6); Osmolality,Calculated 300 (280-300); Phosphorous 2.8 mg/dL (2.7-4.5); Potassium 4.1 mEq/L (3.5-5.1); Sodium 142 mEq/L (136-145); eGFR For African Americans > 60 (> 60); eGFR For Non-African Americans > 60 (> 60)
[2019-09-14] MEDS: Insulin LISPRO 300 UNITS/3 ML VIAL SQ SCH ×6 (03:36→23:39)
[2019-09-14] MEDS: Ipratropium/Albuterol Neb 3 ML IH SCH ×5 (03:52→19:54)
[2019-09-14] MEDS: Dexmedetomidine HCl 400 MCG/100 ML MLS IVC SCH ×5 (05:07→23:17)
[2019-09-14] MEDS: *HR* Metoprolol 5 MG/5 ML VIAL IVP SCH ×4 (05:07→23:16)
[2019-09-14] MEDS: *HR* Heparin 5,000 UNIT/ML VIAL SQ SCH ×2 (05:07→16:56)
[2019-09-14 05:20] LABS: ABG Base Excess 6 mEq/L (-2 to 3); ABG HCO3 34 mEq/L (21-27); ABG Oxygen Saturation 90 % (95-98); ABG PCO2 67 mmHg (35-45); ABG PH 7.31 pH Units (7.32-7.45); ABG PO2 68 mmHg (85-104); ABG TCO2 36 mEq/L (20-26); Blood Gas Modality ASSIST CONTROL; Blood Gas VT 550 cc
[2019-09-14] MEDS: Budesonide/Formoterol 160/4.5 1 PUFF INH IH SCH ×2 (06:49→19:54)
[2019-09-14] MEDS ORDERED: Albumin 25% 25gram/100mL 25 GM/100 ML IV.SOLN IVPB ONE (08:18)
[2019-09-14] MEDS ORDERED: Furosemide 40 MG/4 ML VIAL IVP ONE (08:18)
[2019-09-14] MEDS: Micafungin 100 MG in 0.9 % Sodium Chloride Mini Bag 100 ML IVPB SCH (09:16)
[2019-09-14] MEDS: *HR* Digoxin 0.5 MG/2 ML AMPUL IVP SCH (09:17)
[2019-09-14] MEDS: Chlorhexidine Rinse 15 ML MOUTHWASH MM SCH ×2 (09:17→20:15)
[2019-09-14] MEDS: Meropenem 1,000 MG in 0.9 % Sodium Chloride Mini Bag 100 ML IVPB SCH ×3 (09:20→23:16)
[2019-09-14] MEDS: Pantoprazole 40 MG VIAL IVP SCH (09:20)
[2019-09-14] MEDS ORDERED: [UNRECOGNIZED DRUG - OTHER] IVC SCH (17:00)
[2019-09-14] MEDS ORDERED: MVI IVC SCH (17:00)
[2019-09-14] MEDS ORDERED: CLINIMIX IVC SCH (17:00)
[2019-09-14] MEDS ORDERED: PARENTERAL AMINO ACID 10% IVC SCH (17:00)
[2019-09-15] MEDS: Ipratropium/Albuterol Neb 3 ML IH SCH ×7 (00:28→23:17)
[2019-09-15] MEDS: Artificial Tears SOLN 15 ML BOTTLE BOTH EYES SCH ×6 (03:17→23:24)
[2019-09-15 03:19] LABS: Basophils % 0.2 %; Eosinophils # 0.1 K/mcL (0.0-0.6); Eosinophils % 0.9 %; Hemoglobin 8.1 g/dL (12.9-16.9); Immature Granulocytes % 1.3 % (0-4); Lymphocytes # 1.7 K/mcL (0.6-4.6); Lymphocytes % 10.3 %; Mean Corpuscular Hemoglobin 29.8 pg (28.0-33.3); Mean Corpuscular Volume 99.3 fL (83.0-100.0); Mean Platelet Volume 11.1 fL (9.4-12.4); Monocytes # 1.2 K/mcL (0.0-1.3); Monocytes % 7.4 %; Neutrophils # 12.8 K/mcL (1.6-8.9); Nucleated Red Blood Cells 0.2 /100 WBC (0); Platelet Count 252 K/mcL (140-400); Red Blood Count 2.72 M/mcL (4.19-5.50); Red Cell Distribution Width 14.8 % (11.5-14.5); Segmented Neutrophils % 79.9 %
[2019-09-15 03:35] LABS: BUN/Creatinine Ratio 59 (6-26); Blood Urea Nitrogen 26 mg/dL (8-23); Calcium 9.5 mg/dL (8.6-10.3); Carbon Dioxide 35 mEq/L (23-29); Chloride 105 mEq/L (98-107); Glucose 139 mg/dL (70-105); Magnesium 2.1 mg/dL (1.6-2.6); Osmolality,Calculated 299 (280-300); Phosphorous 2.6 mg/dL (2.7-4.5); Potassium 3.5 mEq/L (3.5-5.1); Sodium 141 mEq/L (136-145); eGFR For African Americans > 60 (> 60); eGFR For Non-African Americans > 60 (> 60)
[2019-09-15] MEDS: Insulin LISPRO 300 UNITS/3 ML VIAL SQ SCH ×6 (03:44→23:23)
[2019-09-15] MEDS: Potassium Phosphate 44 MEQ in 0.9 % Sodium Chloride 250 ML IVPB PRN ×2 (04:11→17:22)
[2019-09-15] MEDS: Dexmedetomidine HCl 400 MCG/100 ML MLS IVC SCH ×4 (04:11→19:39)
[2019-09-15] MEDS: *HR* Metoprolol 5 MG/5 ML VIAL IVP SCH ×4 (05:00→23:24)
[2019-09-15] MEDS: *HR* Heparin 5,000 UNIT/ML VIAL SQ SCH ×2 (05:00→17:26)
[2019-09-15 05:26] LABS: ABG Base Excess 9 mEq/L (-2 to 3); ABG HCO3 36 mEq/L (21-27); ABG Oxygen Saturation 90 % (95-98); ABG PCO2 65 mmHg (35-45); ABG PH 7.35 pH Units (7.32-7.45); ABG PO2 64 mmHg (85-104); ABG TCO2 38 mEq/L (20-26); Blood Gas Modality AF; Blood Gas VT 550 cc
[2019-09-15] MEDS: Budesonide/Formoterol 160/4.5 1 PUFF INH IH SCH ×2 (07:16→20:08)
[2019-09-15] MEDS: *HR* Digoxin 0.5 MG/2 ML AMPUL IVP SCH (09:11)
[2019-09-15] MEDS: Pantoprazole 40 MG VIAL IVP SCH (09:11)
[2019-09-15] MEDS: Chlorhexidine Rinse 15 ML MOUTHWASH MM SCH ×2 (09:11→19:39)
[2019-09-15] MEDS: Meropenem 1,000 MG in 0.9 % Sodium Chloride Mini Bag 100 ML IVPB SCH ×3 (09:12→23:25)
[2019-09-15] MEDS: Micafungin 100 MG in 0.9 % Sodium Chloride Mini Bag 100 ML IVPB SCH (09:12)
[2019-09-15] MEDS: Scopolamine Patch 1.5 MG PATCH.TD72 TD SCH (09:28)
[2019-09-15 15:00] LABS: Phosphorous 2.7 mg/dL (2.7-4.5); Potassium 3.7 mEq/L (3.5-5.1)
[2019-09-15] MEDS ORDERED: [UNRECOGNIZED DRUG - OTHER] IVC SCH (17:00)
[2019-09-15] MEDS ORDERED: MVI IVC SCH (17:00)
[2019-09-15] MEDS ORDERED: CLINIMIX IVC SCH (17:00)
[2019-09-15] MEDS ORDERED: PARENTERAL AMINO ACID 10% IVC SCH (17:00)
[2019-09-16] MEDS: Dexmedetomidine HCl 400 MCG/100 ML MLS IVC SCH ×5 (02:19→20:50)
[2019-09-16] MEDS: Artificial Tears SOLN 15 ML BOTTLE BOTH EYES SCH ×6 (03:16→23:11)
[2019-09-16] MEDS: Insulin LISPRO 300 UNITS/3 ML VIAL SQ SCH ×6 (03:16→23:17)
[2019-09-16] MEDS: Ipratropium/Albuterol Neb 3 ML IH SCH ×5 (03:25→20:09)
[2019-09-16 03:41] LABS: Basophils # 0.1 K/mcL (0.0-0.2); Basophils % 0.3 %; Eosinophils # 0.1 K/mcL (0.0-0.6); Eosinophils % 0.7 %; Hematocrit 28.4 % (37.5-50.1); Hemoglobin 8.7 g/dL (12.9-16.9); Immature Granulocytes % 1.8 % (0-4); Lymphocytes # 1.9 K/mcL (0.6-4.6); Lymphocytes % 11.1 %; Mean Corpuscular HGB Conc 30.6 g/dL (31.6-35.5); Mean Corpuscular Hemoglobin 29.1 pg (28.0-33.3); Mean Platelet Volume 10.8 fL (9.4-12.4); Monocytes # 1.3 K/mcL (0.0-1.3); Monocytes % 7.5 %; Neutrophils # 13.5 K/mcL (1.6-8.9); Nucleated Red Blood Cells 0.1 /100 WBC (0); Platelet Count 329 K/mcL (140-400); Red Blood Count 2.99 M/mcL (4.19-5.50); Red Cell Distribution Width 15.2 % (11.5-14.5); Segmented Neutrophils % 78.6 %; White Blood Count 17.2 K/mcL (4.3-11.1)
[2019-09-16 04:00] LABS: BUN/Creatinine Ratio 59 (6-26); Blood Urea Nitrogen 22 mg/dL (8-23); Calcium 9.4 mg/dL (8.6-10.3); Carbon Dioxide 36 mEq/L (23-29); Chloride 103 mEq/L (98-107); Glucose 134 mg/dL (70-105); Osmolality,Calculated 297 (280-300); Phosphorous 3.1 mg/dL (2.7-4.5); Potassium 3.5 mEq/L (3.5-5.1); Sodium 141 mEq/L (136-145); eGFR For African Americans > 60 (> 60); eGFR For Non-African Americans > 60 (> 60)
[2019-09-16 05:57] LABS: ABG Base Excess 9 mEq/L (-2 to 3); ABG HCO3 37 mEq/L (21-27); ABG Oxygen Saturation 93 % (95-98); ABG PCO2 64 mmHg (35-45); ABG PH 7.38 pH Units (7.32-7.45); ABG PO2 70 mmHg (85-104); ABG TCO2 39 mEq/L (20-26); Blood Gas Modality AF; Blood Gas VT 550 cc
[2019-09-16] MEDS: *HR* Metoprolol 5 MG/5 ML VIAL IVP SCH ×4 (06:06→23:10)
[2019-09-16] MEDS: *HR* Heparin 5,000 UNIT/ML VIAL SQ SCH ×2 (06:09→19:27)
[2019-09-16] MEDS: Budesonide/Formoterol 160/4.5 1 PUFF INH IH SCH ×2 (08:01→20:09)
[2019-09-16] MEDS: Meropenem 1,000 MG in 0.9 % Sodium Chloride Mini Bag 100 ML IVPB SCH ×3 (08:47→23:12)
[2019-09-16] MEDS: Pantoprazole 40 MG VIAL IVP SCH (08:47)
[2019-09-16] MEDS: Micafungin 100 MG in 0.9 % Sodium Chloride Mini Bag 100 ML IVPB SCH (08:47)
[2019-09-16] MEDS: *HR* Digoxin 0.5 MG/2 ML AMPUL IVP SCH (08:47)
[2019-09-16] MEDS: Chlorhexidine Rinse 15 ML MOUTHWASH MM SCH ×2 (08:47→19:28)
[2019-09-16] MEDS: Potassium Phosphate 44 MEQ in 0.9 % Sodium Chloride 250 ML IVPB PRN (11:50)
[2019-09-16] MEDS ORDERED: Furosemide 20 MG/2 ML VIAL IVP ONE (12:25)
[2019-09-16] MEDS ORDERED: Potassium Chloride 20 MEQ, Lidocaine 1% 2 ML in 0.9 % Sodium Chloride 250 ML IVPB ONE (12:25)
[2019-09-16] MEDS ORDERED: Aminoglycoside Consult 1 EACH MC ONE (14:06)
[2019-09-16] MEDS ORDERED: MVI IVC SCH (17:00)
[2019-09-16] MEDS ORDERED: PARENTERAL AMINO ACID 10% IVC SCH (17:00)
[2019-09-16] MEDS ORDERED: CLINIMIX IVC SCH (17:00)
[2019-09-16] MEDS ORDERED: [UNRECOGNIZED DRUG - OTHER] IVC SCH (17:00)
[2019-09-16 19:52] LABS: BUN/Creatinine Ratio 55 (6-26); Blood Urea Nitrogen 23 mg/dL (8-23); Calcium 9.2 mg/dL (8.6-10.3); Carbon Dioxide 38 mEq/L (23-29); Chloride 104 mEq/L (98-107); Glucose 128 mg/dL (70-105); Osmolality,Calculated 301 (280-300); Phosphorous 3.9 mg/dL (2.7-4.5); Potassium 3.9 mEq/L (3.5-5.1); Sodium 143 mEq/L (136-145); eGFR For African Americans > 60 (> 60); eGFR For Non-African Americans > 60 (> 60)
[2019-09-17] MEDS: Ipratropium/Albuterol Neb 3 ML IH SCH ×6 (00:06→19:49)
[2019-09-17] MEDS: Dexmedetomidine HCl 400 MCG/100 ML MLS IVC SCH ×5 (02:00→23:27)
[2019-09-17] MEDS: Artificial Tears SOLN 15 ML BOTTLE BOTH EYES SCH ×6 (03:09→23:27)
[2019-09-17] MEDS: Insulin LISPRO 300 UNITS/3 ML VIAL SQ SCH ×6 (03:41→23:27)
[2019-09-17 04:07] LABS: Basophils # 0.1 K/mcL (0.0-0.2); Basophils % 0.5 %; Eosinophils # 0.2 K/mcL (0.0-0.6); Eosinophils % 1.2 %; Hematocrit 26.2 % (37.5-50.1); Hemoglobin 7.8 g/dL (12.9-16.9); Immature Granulocytes % 1.4 % (0-4); Lymphocytes # 1.6 K/mcL (0.6-4.6); Lymphocytes % 11.8 %; Mean Corpuscular HGB Conc 29.8 g/dL (31.6-35.5); Mean Corpuscular Volume 97.4 fL (83.0-100.0); Mean Platelet Volume 10.7 fL (9.4-12.4); Monocytes % 7.2 %; Neutrophils # 10.4 K/mcL (1.6-8.9); Platelet Count 277 K/mcL (140-400); Red Blood Count 2.69 M/mcL (4.19-5.50); Red Cell Distribution Width 15.5 % (11.5-14.5); Segmented Neutrophils % 77.9 %; White Blood Count 13.3 K/mcL (4.3-11.1)
[2019-09-17 04:26] LABS: Albumin 2.2 g/dL (3.5-5.7); Albumin/Globulin Ratio 0.7 (1.1-2.2); Globulin 3.3 g/dL (2.4-3.5); Total Protein 5.5 g/dL (6.4-8.9)
[2019-09-17 04:27] LABS: BUN/Creatinine Ratio 66 (6-26); Blood Urea Nitrogen 23 mg/dL (8-23); Calcium 9.4 mg/dL (8.6-10.3); Carbon Dioxide 37 mEq/L (23-29); Chloride 103 mEq/L (98-107); Glucose 149 mg/dL (70-105); Osmolality,Calculated 300 (280-300); Phosphorous 3.2 mg/dL (2.7-4.5); Potassium 3.5 mEq/L (3.5-5.1); Sodium 142 mEq/L (136-145); eGFR For African Americans > 60 (> 60); eGFR For Non-African Americans > 60 (> 60)
[2019-09-17 04:50] LABS: ABG Base Excess 14 mEq/L (-2 to 3); ABG HCO3 41 mEq/L (21-27); ABG Oxygen Saturation 88 % (95-98); ABG PCO2 64 mmHg (35-45); ABG PH 7.41 pH Units (7.32-7.45); ABG PO2 56 mmHg (85-104); ABG TCO2 43 mEq/L (20-26); Blood Gas Modality ASSIST CONTROL; Blood Gas VT 550 cc
[2019-09-17] MEDS: Potassium Chloride 40 MEQ/200 ML BAG IVPB PRN ×4 (05:12→21:23)
[2019-09-17] MEDS: *HR* Heparin 5,000 UNIT/ML VIAL SQ SCH ×2 (05:13→17:33)
[2019-09-17] MEDS: *HR* Metoprolol 5 MG/5 ML VIAL IVP SCH ×4 (05:13→23:27)
[2019-09-17] MEDS: Budesonide/Formoterol 160/4.5 1 PUFF INH IH SCH ×2 (07:28→19:51)
[2019-09-17] MEDS: Micafungin 100 MG in 0.9 % Sodium Chloride Mini Bag 100 ML IVPB SCH (09:26)
[2019-09-17] MEDS: Meropenem 1,000 MG in 0.9 % Sodium Chloride Mini Bag 100 ML IVPB SCH (09:26)
[2019-09-17] MEDS: *HR* Digoxin 0.5 MG/2 ML AMPUL IVP SCH (09:27)
[2019-09-17] MEDS: Chlorhexidine Rinse 15 ML MOUTHWASH MM SCH ×2 (09:27→19:47)
[2019-09-17] MEDS: Pantoprazole 40 MG VIAL IVP SCH (09:27)
[2019-09-17 10:40] LABS: Potassium 3.6 mEq/L (3.5-5.1)
[2019-09-17] MEDS: Fluconazole 400 MG/200 ML IVPB SCH (13:29)
[2019-09-17] MEDS: Piperacillin/Tazobactam 3.375 GM in 0.9 % Sodium Chloride Mini Bag 100 ML IVPB SCH ×2 (16:46→23:28)
[2019-09-17] MEDS ORDERED: MVI IVC SCH (17:00)
[2019-09-17] MEDS ORDERED: PARENTERAL AMINO ACID 10% IVC SCH (17:00)
[2019-09-17] MEDS ORDERED: [UNRECOGNIZED DRUG - OTHER] IVC SCH (17:00)
[2019-09-17] MEDS ORDERED: CLINIMIX IVC SCH (17:00)
[2019-09-18] MEDS: Ipratropium/Albuterol Neb 3 ML IH SCH ×7 (00:05→23:35)
[2019-09-18] MEDS: Artificial Tears SOLN 15 ML BOTTLE BOTH EYES SCH ×6 (03:27→23:43)
[2019-09-18] MEDS: Insulin LISPRO 300 UNITS/3 ML VIAL SQ SCH ×6 (03:27→23:43)
[2019-09-18 03:40] LABS: Basophils % 0.3 %; Eosinophils # 0.2 K/mcL (0.0-0.6); Eosinophils % 1.6 %; Hematocrit 26.8 % (37.5-50.1); Immature Granulocytes % 1.3 % (0-4); Lymphocytes # 1.6 K/mcL (0.6-4.6); Lymphocytes % 14.1 %; Mean Corpuscular HGB Conc 29.9 g/dL (31.6-35.5); Mean Corpuscular Hemoglobin 28.8 pg (28.0-33.3); Mean Corpuscular Volume 96.4 fL (83.0-100.0); Mean Platelet Volume 10.3 fL (9.4-12.4); Monocytes # 0.8 K/mcL (0.0-1.3); Monocytes % 7.1 %; Neutrophils # 8.5 K/mcL (1.6-8.9); Platelet Count 317 K/mcL (140-400); Red Blood Count 2.78 M/mcL (4.19-5.50); Red Cell Distribution Width 15.6 % (11.5-14.5); Segmented Neutrophils % 75.6 %; White Blood Count 11.2 K/mcL (4.3-11.1)
[2019-09-18 03:59] LABS: BUN/Creatinine Ratio 56 (6-26); Blood Urea Nitrogen 22 mg/dL (8-23); Calcium 9.4 mg/dL (8.6-10.3); Carbon Dioxide 38 mEq/L (23-29); Chloride 103 mEq/L (98-107); Glucose 131 mg/dL (70-105); Magnesium 2.1 mg/dL (1.6-2.6); Osmolality,Calculated 295 (280-300); Phosphorous 2.5 mg/dL (2.7-4.5); Potassium 3.7 mEq/L (3.5-5.1); Sodium 140 mEq/L (136-145); eGFR For African Americans > 60 (> 60); eGFR For Non-African Americans > 60 (> 60)
[2019-09-18] MEDS: Dexmedetomidine HCl 400 MCG/100 ML MLS IVC SCH ×4 (04:04→19:46)
[2019-09-18 04:12] LABS: ABG Base Excess 10 mEq/L (-2 to 3); ABG HCO3 38 mEq/L (21-27); ABG Oxygen Saturation 90 % (95-98); ABG PCO2 66 mmHg (35-45); ABG PH 7.37 pH Units (7.32-7.45); ABG PO2 64 mmHg (85-104); ABG TCO2 40 mEq/L (20-26); Blood Gas Modality VC; Blood Gas VT 550 cc
[2019-09-18] MEDS: *HR* Metoprolol 5 MG/5 ML VIAL IVP SCH ×4 (05:06→23:43)
[2019-09-18] MEDS: *HR* Heparin 5,000 UNIT/ML VIAL SQ SCH ×2 (05:08→17:32)
[2019-09-18] MEDS: Potassium Phosphate 44 MEQ in 0.9 % Sodium Chloride 250 ML IVPB PRN (05:46)
[2019-09-18] MEDS: Budesonide/Formoterol 160/4.5 1 PUFF INH IH SCH ×2 (07:25→20:02)
[2019-09-18] MEDS: Scopolamine Patch 1.5 MG PATCH.TD72 TD SCH (07:53)
[2019-09-18] MEDS: Chlorhexidine Rinse 15 ML MOUTHWASH MM SCH ×2 (07:53→20:36)
[2019-09-18] MEDS: Piperacillin/Tazobactam 3.375 GM in 0.9 % Sodium Chloride Mini Bag 100 ML IVPB SCH ×3 (07:54→23:43)
[2019-09-18] MEDS: *HR* Digoxin 0.5 MG/2 ML AMPUL IVP SCH (07:54)
[2019-09-18] MEDS: Pantoprazole 40 MG VIAL IVP SCH (07:54)
[2019-09-18] MEDS: Fluconazole 400 MG/200 ML IVPB SCH (07:54)
[2019-09-18] MEDS ORDERED: CLINIMIX IVC SCH (17:00)
[2019-09-18] MEDS ORDERED: [UNRECOGNIZED DRUG - OTHER] IVC SCH (17:00)
[2019-09-18] MEDS ORDERED: CLINIMIX E IVC SCH (17:00)
[2019-09-18] MEDS ORDERED: PARENTERAL AMINO ACID 10% IVC SCH ×2 (17:00)
[2019-09-18] MEDS ORDERED: [UNRECOGNIZED DRUG - OTHER] IVC SCH (17:00)
[2019-09-18] MEDS ORDERED: MVI IVC SCH ×2 (17:00)
[2019-09-19] MEDS: Dexmedetomidine HCl 400 MCG/100 ML MLS IVC SCH ×5 (01:07→22:57)
[2019-09-19 03:34] LABS: Basophils % 0.3 %; Eosinophils # 0.2 K/mcL (0.0-0.6); Eosinophils % 1.6 %; Hematocrit 25.1 % (37.5-50.1); Hemoglobin 7.5 g/dL (12.9-16.9); Immature Granulocytes % 1.2 % (0-4); Lymphocytes # 1.6 K/mcL (0.6-4.6); Lymphocytes % 15.3 %; Mean Corpuscular HGB Conc 29.9 g/dL (31.6-35.5); Mean Corpuscular Volume 96.9 fL (83.0-100.0); Mean Platelet Volume 10.8 fL (9.4-12.4); Monocytes # 0.8 K/mcL (0.0-1.3); Monocytes % 7.4 %; Neutrophils # 7.5 K/mcL (1.6-8.9); Platelet Count 289 K/mcL (140-400); Red Blood Count 2.59 M/mcL (4.19-5.50); Red Cell Distribution Width 15.9 % (11.5-14.5); Segmented Neutrophils % 74.2 %; White Blood Count 10.1 K/mcL (4.3-11.1)
[2019-09-19] MEDS: Ipratropium/Albuterol Neb 3 ML IH SCH ×6 (03:39→23:11)
[2019-09-19 03:49] LABS: BUN/Creatinine Ratio 57 (6-26); Blood Urea Nitrogen 26 mg/dL (8-23); Calcium 9.5 mg/dL (8.6-10.3); Carbon Dioxide 38 mEq/L (23-29); Chloride 103 mEq/L (98-107); Glucose 131 mg/dL (70-105); Osmolality,Calculated 297 (280-300); Phosphorous 3.5 mg/dL (2.7-4.5); Potassium 4.2 mEq/L (3.5-5.1); Sodium 140 mEq/L (136-145); eGFR For African Americans > 60 (> 60); eGFR For Non-African Americans > 60 (> 60)
[2019-09-19] MEDS: Insulin LISPRO 300 UNITS/3 ML VIAL SQ SCH ×6 (03:52→23:08)
[2019-09-19] MEDS: Artificial Tears SOLN 15 ML BOTTLE BOTH EYES SCH ×6 (03:52→23:18)
[2019-09-19 05:22] LABS: ABG Base Excess 13 mEq/L (-2 to 3); ABG HCO3 40 mEq/L (21-27); ABG Oxygen Saturation 90 % (95-98); ABG PCO2 72 mmHg (35-45); ABG PH 7.35 pH Units (7.32-7.45); ABG PO2 65 mmHg (85-104); ABG TCO2 42 mEq/L (20-26); Blood Gas VT 550 cc
[2019-09-19] MEDS: *HR* Metoprolol 5 MG/5 ML VIAL IVP SCH ×4 (05:25→23:08)
[2019-09-19] MEDS: *HR* Heparin 5,000 UNIT/ML VIAL SQ SCH ×2 (05:27→16:17)
[2019-09-19] MEDS: Budesonide/Formoterol 160/4.5 1 PUFF INH IH SCH ×2 (07:18→19:25)
[2019-09-19] MEDS: Fluconazole 400 MG/200 ML IVPB SCH (08:01)
[2019-09-19] MEDS: Piperacillin/Tazobactam 3.375 GM in 0.9 % Sodium Chloride Mini Bag 100 ML IVPB SCH ×3 (08:02→23:13)
[2019-09-19] MEDS: *HR* Digoxin 0.5 MG/2 ML AMPUL IVP SCH (08:02)
[2019-09-19] MEDS: Chlorhexidine Rinse 15 ML MOUTHWASH MM SCH ×2 (08:02→19:33)
[2019-09-19] MEDS: Pantoprazole 40 MG VIAL IVP SCH (08:03)
[2019-09-19] MEDS ORDERED: PARENTERAL AMINO ACID 10% IVC SCH ×2 (17:00)
[2019-09-19] MEDS ORDERED: CLINIMIX IVC SCH (17:00)
[2019-09-19] MEDS ORDERED: MVI IVC SCH ×2 (17:00)
[2019-09-19] MEDS ORDERED: [UNRECOGNIZED DRUG - OTHER] IVC SCH (17:00)
[2019-09-19] MEDS ORDERED: CLINIMIX E IVC SCH (17:00)
[2019-09-19] MEDS ORDERED: [UNRECOGNIZED DRUG - OTHER] IVC SCH (17:00)
[2019-09-20] MEDS: Ipratropium/Albuterol Neb 3 ML IH SCH ×4 (03:11→16:15)
[2019-09-20] MEDS: Artificial Tears SOLN 15 ML BOTTLE BOTH EYES SCH ×2 (03:44→09:06)
[2019-09-20] MEDS: Insulin LISPRO 300 UNITS/3 ML VIAL SQ SCH ×2 (03:44→09:06)
[2019-09-20 04:18] LABS: BUN/Creatinine Ratio 60 (6-26); Blood Urea Nitrogen 27 mg/dL (8-23); Calcium 9.4 mg/dL (8.6-10.3); Carbon Dioxide 37 mEq/L (23-29); Chloride 102 mEq/L (98-107); Glucose 142 mg/dL (70-105); Magnesium 2.1 mg/dL (1.6-2.6); Osmolality,Calculated 296 (280-300); Phosphorous 3.2 mg/dL (2.7-4.5); Potassium 4.1 mEq/L (3.5-5.1); Sodium 139 mEq/L (136-145); eGFR For African Americans > 60 (> 60); eGFR For Non-African Americans > 60 (> 60)
[2019-09-20] MEDS: Dexmedetomidine HCl 400 MCG/100 ML MLS IVC SCH ×2 (04:23→08:45)
[2019-09-20] MEDS: *HR* Metoprolol 5 MG/5 ML VIAL IVP SCH (05:15)
[2019-09-20] MEDS: *HR* Heparin 5,000 UNIT/ML VIAL SQ SCH (05:17)
[2019-09-20] MEDS: Budesonide/Formoterol 160/4.5 1 PUFF INH IH SCH (07:54)
[2019-09-20 07:59] LABS: ABG Base Excess 14 mEq/L (-2 to 3); ABG HCO3 42 mEq/L (21-27); ABG Oxygen Saturation 87 % (95-98); ABG PCO2 79 mmHg (35-45); ABG PH 7.33 pH Units (7.32-7.45); ABG PO2 60 mmHg (85-104); ABG TCO2 44 mEq/L (20-26); Blood Gas Modality CPAP/PS; Blood Gas Pressure Support 5 cm H2O
[2019-09-20] MEDS: Piperacillin/Tazobactam 3.375 GM in 0.9 % Sodium Chloride Mini Bag 100 ML IVPB SCH (09:10)
[2019-09-20] MEDS: Chlorhexidine Rinse 15 ML MOUTHWASH MM SCH (09:10)
[2019-09-20] MEDS: Pantoprazole 40 MG VIAL IVP SCH (09:10)
[2019-09-20] MEDS: Fluconazole 400 MG/200 ML IVPB SCH (09:11)
[2019-09-20] MEDS: *HR* Digoxin 0.5 MG/2 ML AMPUL IVP SCH (09:11)
[2019-09-20] MEDS ORDERED: Glycopyrrolate 0.2 MG/ML VIAL IVP PRN ×2 (11:58→16:40)
[2019-09-20] MEDS ORDERED: *HR* LORazepam 2 MG/ML VIAL IVP ONE (12:15)
[2019-09-20] MEDS ORDERED: *HR* LORazepam 2 MG/ML VIAL IVP PRN ×2 (12:20→16:40)
[2019-09-20] MEDS ORDERED: Ondansetron 4 MG/2 ML VIAL IVP PRN ×2 (16:40→17:30)
[2019-09-20] MEDS ORDERED: PARENTERAL AMINO ACID 10% IVC SCH ×4 (16:40→17:00)
[2019-09-20] MEDS ORDERED: CLINIMIX IVC SCH ×3 (16:40→17:00)
[2019-09-20] MEDS ORDERED: [UNRECOGNIZED DRUG - OTHER] IVC SCH ×3 (16:40→17:00)
[2019-09-20] MEDS ORDERED: Artificial Tears SOLN 15 ML BOTTLE BOTH EYES PRN ×2 (16:40→17:30)
[2019-09-20] MEDS ORDERED: MVI IVC SCH ×4 (16:40→17:00)
[2019-09-20] MEDS ORDERED: Ipratropium/Albuterol Neb 3 ML IH PRN (16:40)
[2019-09-20] MEDS ORDERED: [UNRECOGNIZED DRUG - OTHER] IVC SCH (17:00)
[2019-09-20] MEDS ORDERED: CLINIMIX E IVC SCH (17:00)
[2019-09-20] MEDS ORDERED: Acetaminophen 650 MG RECTAL SUPP RC PRN ×2 (17:01→17:30)
[2019-09-20] MEDS ORDERED: Morphine Sulfate 2 MG/ML SYRINGE IVP PRN (17:01)
[2019-09-20] MEDS ORDERED: *HR* Metoprolol 5 MG/5 ML VIAL IVP SCH (18:00)
[2019-09-20] MEDS ORDERED: *HR* Heparin 5,000 UNIT/ML VIAL SQ SCH (18:00)
[2019-09-20] MEDS ORDERED: Insulin LISPRO 300 UNITS/3 ML VIAL SQ SCH (20:00)
[2019-09-20] MEDS ORDERED: Ipratropium/Albuterol Neb 3 ML IH SCH (20:00)
[2019-09-20] MEDS: Morphine Sulfate 2 MG/ML SYRINGE IVP PRN (21:34)
[2019-09-20] MEDS ORDERED: Budesonide/Formoterol 160/4.5 1 PUFF INH IH SCH (22:00)
[2019-09-21] MEDS ORDERED: Piperacillin/Tazobactam 3.375 GM in 0.9 % Sodium Chloride Mini Bag 100 ML IVPB SCH
[2019-09-21] MEDS: Morphine Sulfate 2 MG/ML SYRINGE IVP PRN ×6 (02:26→19:52)
[2019-09-21] MEDS ORDERED: Fluconazole 400 MG/200 ML 400 MG/200 ML BAG IVPB SCH (09:00)
[2019-09-21] MEDS ORDERED: Pantoprazole 40 MG VIAL IVP SCH (09:00)
[2019-09-21] MEDS ORDERED: *HR* Digoxin 0.5 MG/2 ML AMPUL IVP SCH (09:00)
[2019-09-21] MEDS ORDERED: Scopolamine Patch 1.5 MG PATCH.TD72 TD SCH ×2 (09:15)
[2019-09-21] MEDS ORDERED: *HR* FentaNYL PATCH 100 MCG PATCH TD SCH (10:30)
[2019-09-21] MEDS ORDERED: Morphine Sulfate Oral CONC 10 MG/0.5 ML ORAL.SYG SL PRN (10:40)
[2019-09-21] MEDS: *HR* LORazepam 2 MG/ML VIAL IVP PRN ×3 (14:13→19:52)
[2019-09-21 19:07] VITALS: BP 112/65
== END 2019-09-21 20:05 | disposition hospice, home (50) | DRG 326 ==
LOC: SAMDAY 12:35 → SUATTDRO 21:37 → 3ANU 21:37 → ICNU 08-27 13:54 → 2NNU 08-28 23:59 → ICNU 09-06 00:39 → 2ANU 09-20 17:55
PROVIDERS: ADMIT Surgery; ATTEND Internal Medicine
PROC: IRDRAIN (2019-08-30 20:00)